=== PATIENT | female | born 1985 | race Caucasian/White ===

== ENCOUNTER 2018-08-27 11:22 | Emergency (ER) | payer OTHER, SELFPAY ==
[2018-08-27] MEDS ORDERED: ONDANSETRON 4 MG/2 ML VIAL ONE (12:04)
[2018-08-27] MEDS ORDERED: NA CHLORIDE 0.9% 1,000 ML ONE (12:04)
[2018-08-27] MEDS ORDERED: DICYCLOMINE HCL 10 MG CAP ONE (12:10)
[2018-08-27 12:30] LABS: Absolute Lymphocytes (CBC) 2.2 K/uL (0.7-4.9); Absolute Monocytes 0.6 K/uL (0.1-1.3); Absolute Neutrophil 5.3 K/uL (1.8-8.0); Basophils % 0.3 % (0-1.3); Eosinophils % 1.1 % (0-4.4); Hematocrit 39.9 % (36.0-45.0); Lymphocytes % 26.6 % (15.3-44.8); MCH 29.4 pg (27.0-35.0); MCV 85.6 fL (80-100); MPV 9.1 fL (7.6-11.3); Monocytes % 7.5 % (3.3-12.3); RBC Red Blood Cell Count 4.66 M/uL (3.86-4.86)
[2018-08-27 12:39] LABS: Urine Bacteria LOADED /HPF (<20); Urine Culture Reflex Order REFLEXED; Urine RBC <5 /HPF (NONE SEEN)
[2018-08-27 12:49] LABS: ALT/SGPT 32 U/L (12-78); AST/SGOT 20 U/L (15-37); Albumin 3.5 g/dL (3.4-5.0); Alkaline Phosphatase 53 U/L (45-117); BUN Blood Urea Nitrogen 5 mg/dL (7-18); Bicarbonate 23 mmol/L (21-32); Bilirubin Direct < 0.1 mg/dL (0-0.2); Bilirubin Total 0.3 mg/dL (0.2-1.0); Glucose Level 121 mg/dL (74-106); Lipase 147 U/L (73-393); Potassium 3.1 mmol/L (3.5-5.1); Protein, Total 7.4 g/dL (6.4-8.2); Sodium Level 139 mmol/L (136-145)
--- NOTE | 2018-08-27 13:22 | RAD REPORT ---
EXAM DESCRIPTION: US - Transvaginal OB - 08/27/2018 1:15 pm CLINICAL HISTORY: ABD PAIN COMPARISON: TRANSVAGINAL STUDY PROBE dated 10/25/2007 FINDINGS: A tiny single gestational sac is seen within the uterus. The shape of the sac is within no rmal limits for gestational age. No yolk sac or pole yet identified. The placenta is not yet developed due to early gestational age. The maternal adnexa and ovaries are within normal limits. Normal Doppler blood flow was demonstrated to both ovaries. IMPRESSION: The findings would be most compatible with a very early IUP, estimated at 5 weeks gestat ional age. Recommend follow-up pelvic ultrasound in 10-12 days and correlation with serial HCG levels .
[2018-08-27 14:52] LABS: Urine Blood NEGATIVE (NEG); Urine Glucose NEGATIVE (NEG); Urine Protein NEGATIVE (NEG); Urine pH 5.5 (5.0-7.0)
--- NOTE | 2018-08-27 15:40 | EDPHYS ---
Physician Documentation [facility] Name: Tanya Leija Age: 32 yrs Sex: Female : 1985 Arrival Date: 08/27/2018 Time: 11:26 Bed 20 Private MD: ED Physician Perico Kulkarni HPI: 08/27 11:43 This 32 yrs old Female presents to ER via Ambulatory with complaints of jmm Diarrhea, Abdominal Pain. 11:43 The patient presents to the emergency department with nausea, diarrhea. Onset: The jmm symptoms/episode began/occurred acutely, yesterday. Possible causes: unknown. Associated signs and symptoms: Pertinent positives: abdominal pain. 11:43 This is a 32 year old female with ahistory of HTN that presents to the ED with lower jmm abdominal pain and diarrhea beginning approx 1 day ago. Denies sick contacts, denies recent abx use, denies recent travel. . 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 - Social history:: Smoking status: Patient/guardian denies using tobacco. - Ebola Screening: : Patient negative for fever greater than or equal to 101.5 degrees Fahrenheit, and additional compatible Ebola Virus Disease symptoms Patient denies exposure to infectious person Patient denies travel to an Ebola-affected area in the 21 days before illness onset No symptoms or risks identified at this time. ROS: 11:43 Constitutional: Negative for fever, chills, and weight loss, Cardiovascular: Negative jmm for chest pain, palpitations, and edema, Respiratory: Negative for shortness of breath, cough, wheezing, and pleuritic chest pain. 11:43 Back: Negative for injury and pain, MS/Extremity: Negative for injury and deformity, Skin: Negative for injury, rash, and discoloration, Neuro: Negative for headache, weakness, numbness, tingling, and seizure. 11:43 Abdomen/GI: Positive for abdominal pain. 11:43 All other systems are negative. Exam: 11:43 Constitutional: This is a well developed, well nourished patient who is awake, alert, jmm and in no acute distress. Head/Face: atraumatic. Eyes: EOMI, no conjunctival erythema appreciated ENT: Moist Mucus Membranes Neck: Trachea midline, Supple Chest/axilla: Normal chest wall appearance and motion. Cardiovascular: Regular rate and rhythm. No edema appreciated Respiratory: Normal respirations, no respiratory distress appreciated 11:43 Abdomen/GI: Inspection: abdomen appears normal, Bowel sounds: normal, Palpation: soft, mild abdominal tenderness, in the right upper quadrant and right lower quadrant. 11:43 Back: ROM is normal. 11:43 Musculoskeletal/extremity: ROM: intact in all extremities. 11:43 Skin: Appearance: Color: normal in color. 11:43 Neuro: Orientation: is normal, Mentation: is normal, Memory: is normal. 11:43 Psych: Behavior/mood is pleasant, cooperative. Vital Signs: 11:28 BP 153 / 95; Pulse 105; Resp 19; Temp 98.6; Pulse Ox 98% on R/A; Weight 123.83 kg; aj Height 5 ft. 6 in. (167.64 cm); 12:30 BP 146 / 68; Pulse 97; Resp 18; Pulse Ox 100% on R/A; hj 13:46 BP 126 / 74; Pulse 82; Resp 18; Pulse Ox 100% on R/A; hj 14:49 BP 125 / 72; Pulse 80; Resp 18; Pulse Ox 100% on R/A; hj 15:18 BP 128 / 75; Pulse 85; Resp 18; Pulse Ox 100% on R/A; hj 11:28 Body Mass Index 44.06 (123.83 kg, 167.64 cm) aj MDM: 11:43 Patient medically screened. [facility] 15:38 Data reviewed: vital signs, nurses notes, lab test result(s), radiologic studies, [facility] ultrasound. Counseling: I had a detailed discussion with the patient and/or guardian regarding: the historical points, exam findings, and any diagnostic results supporting the discharge/admit diagnosis, radiology results, the need for outpatient follow up, to return to the emergency department if symptoms worsen or persist or if there are any questions or concerns that arise at home. 15:45 ED course: Patient states having decreased abdominal pain after administration of [facility] antiemetics, Bentyl, IVF. I discussed with radiology the need for MRI. Dr. Lawler stated MRI of the abdomen performed at this facility would be suboptimal and recommends transfer to an academic facility. The patient's CBC shows no leukocytosis and the patient is afebrile. The patient was advised of the need for transfer along with the risks of an undiagnosed appendicitis which could lead to of her and her fetus. The patient declined transfer and was educated on signs and symptoms of progressively worsening appendicitis. Patient understood. 08/27 11:44 Order name: Basic Metabolic Panel; Complete Time: 12:52 [facility] 08/27 11:44 Order name: CBC with Diff; Complete Time: 12:52 [facility] 08/27 11:44 Order name: Creatinine for Radiology; Complete Time: 12:52 [facility] 08/27 11:44 Order name: Hepatic Function; Complete Time: 12:52 [facility] 08/27 11:44 Order name: Lipase; Complete Time: 12:52 [facility] 08/27 12:00 Order name: Urine Microscopic Only; Complete Time: 12:52 [facility] 08/27 12:00 Order name: Urine Culture [facility] 08/27 12:08 Order name: Urine Dipstick--Ancillary (enter results); Complete Time: 14:56 08/27 12:08 Order name: Urine --Ancillary (enter results); Complete Time: 14:56 08/27 12:11 Order name: Quantitative Hcg; Complete Time: 13:19 [facility] 08/27 12:11 Order name: Abo/rh Typing; Complete Time: 13:19 [facility] 08/27 13:38 Order name: ABO/RH no charge; Complete Time: 13:48 EDMS 08/27 11:44 Order name: IV Saline Lock; Complete Time: 12:15 [facility] 08/27 11:44 Order name: Labs collected and sent; Complete Time: 12:15 [facility] 08/27 11:44 Order name: Urine Test (obtain specimen); Complete Time: 12:15 [facility] 08/27 13:16 Order name: Transvaginal OB; Complete Time: 13:25 EDMS Administered Medications: 11:44 Drug: NS 0.9% 1000 ml Route: IV; Rate: 1 bolus; Site: left antecubital; 14:00 Follow up: IV Status: Completed infusion 11:44 Drug: Zofran 4 mg Route: IVP; Site: left antecubital; hj 14:57 Follow up: Response: No adverse reaction hj 11:44 Drug: Bentyl 20 mg Route: PO; hj 14:58 Follow up: Response: No adverse reaction 11:44 CANCELLED (Duplicate Order): NS 0.9% 1000 ml IV at 1 bolus Per protocol; 1000 mL bolus [facility] Disposition: 17:49 Co-signature as Attending Physician, Perico Kulkarni MD. rn Disposition: 08/27/18 15:39 Discharged to Home. Impression: Urinary tract infection, site not specified, Other abdominal pain. - Condition is Stable. - Discharge Instructions: and Urinary Tract Infection. - Prescriptions for Macrobid 100 mg Oral Capsule - take 1 capsule by ORAL route every 12 hours for 7 days; 14 capsule. - Medication Reconciliation Form, Thank You Letter, Antibiotic Education, Prescription Opioid Use, Work release form form. - Follow up: Private Physician; When: 2 - 3 days; Reason: Recheck today's complaints, Continuance of care, Re-evaluation by your physician. - Notes: Please follow up with your primary care provider tomorrow for reevaluation of your abdomen. Please return to the Emergency Department if you develop -Fever -increased adominal pain -vomiting -vaginal bleeding -any other concerning symptoms Signatures: Dispatcher [employer] [facility] Tanya Jama RN Nikos Roberson PA PA jmm Nieto, Roman, MD MD rn Joaquin, Henry, RN RN hj Corrections: (The following items were deleted from the chart) 11:44 11:44 NS 0.9% 1000 ml IV at 1 bolus Per protocol; 1000 mL bolus ordered. [facility] 12:00 11:44 Abdomen Pelvis W Con+CT.RAD.BRZ ordered. [facility] 12:43 12:11 Pelvis Complete+US.RAD.BRZ ordered. [facility] 13:15 12:43 Transvaginal Study Probe ordered. [facility] 16:16 15:39 08/27/2018 15:39 Discharged to Home. Impression: Urinary tract infection, site hj not specified; Other abdominal pain. Condition is Stable. Forms are Medication Reconciliation Form, Thank You Letter, Antibiotic Education, Prescription Opioid Use. Follow up: Private Physician; When: 2 - 3 days; Reason: Recheck today's complaints, Continuance of care, Re-evaluation by your physician. [email or web address]
--- NOTE | 2018-08-27 15:40 | ER ---
Nurse's Notes [facility] Name: Tnaya Leija Age: 32 yrs Sex: Female : 1985 Arrival Date: 08/27/2018 Time: 11:26 Bed 20 Private MD: Diagnosis: Urinary tract infection, site not specified;Other abdominal pain Presentation: 08/27 11:26 Presenting complaint: Patient states: Nausea and diarrhea since yesterday with lower aj abdominal pain. Patient reports she is able to tolerate liquids. Did not take anti diarrhea medications. Transition of care: patient was not received from another setting of care. Onset of symptoms was August 26, 2018. Risk Assessment: Do you want to hurt yourself or someone else? Patient reports no desire to harm self or others. Initial Sepsis Screen: Does the patient meet any 2 criteria? No. Patient's initial sepsis screen is negative. Does the patient have a suspected source of infection? No. Patient's initial sepsis screen is negative. Care prior to arrival: None. 11:26 Method Of Arrival: Ambulatory aj 11:26 Acuity: SUJEY 3 aj Triage Assessment: 11:28 General: Appears in no apparent distress. comfortable, Behavior is calm, cooperative, aj appropriate for age. Pain: Complains of pain in right lower quadrant and left lower quadrant. Neuro: Level of Consciousness is awake, alert, obeys commands, Oriented to person, place, time, situation, Appropriate for age. Respiratory: Airway is patent Respiratory effort is even, unlabored, Respiratory pattern is regular, symmetrical. GI: Reports lower abdominal pain, diarrhea, nausea. Derm: Skin is intact, is healthy with good turgor, Skin is pink, warm \T\ dry. normal. RN MDS: 11:28 LMP 07/24/2018 aj Historical: - Allergies: 11:28 No Known Allergies; aj - Home Meds: 11:28 lisinopril 10 mg Oral tab 1 tab once daily [Active]; aj - PMHx: 11:28 Hypertension; aj - PSHx: 11:28 Cholecystectomy; ; aj - Immunization history:: Adult Immunizations up to date. - Social history:: Smoking status: Patient/guardian denies using tobacco. - Ebola Screening: : Patient negative for fever greater than or equal to 101.5 degrees Fahrenheit, and additional compatible Ebola Virus Disease symptoms Patient denies exposure to infectious person Patient denies travel to an Ebola-affected area in the 21 days before illness onset No symptoms or risks identified at this time. Screenin:38 Abuse screen: Denies threats or abuse. Denies injuries from another. Nutritional hj screening: No deficits noted. Tuberculosis screening: No symptoms or risk factors identified. Fall Risk None identified. Assessment: 11:41 General: Appears in no apparent distress. uncomfortable, Behavior is calm, cooperative, hj appropriate for age. Pain: Complains of pain in left lower quadrant and right lower quadrant. Neuro: Level of Consciousness is awake, alert, obeys commands, Oriented to person, place, time, situation, Appropriate for age. Cardiovascular: Capillary refill < 3 seconds Patient's skin is warm and dry. Respiratory: Airway is patent Respiratory effort is even, unlabored, Respiratory pattern is regular, symmetrical. GI: Reports lower abdominal pain, diarrhea. : No signs and/or symptoms were reported regarding the genitourinary system. EENT: No signs and/or symptoms were reported regarding the EENT system. Derm: No signs and/or symptoms reported regarding the dermatologic system. Musculoskeletal: No signs and/or symptoms reported regarding the musculoskeletal system. 12:30 Reassessment: Patient and/or family updated on plan of care and expected duration. Pain hj level reassessed. Patient is alert, oriented x 3, equal unlabored respirations, skin warm/dry/pink. awaiting CT/US;. 13:51 Reassessment: Patient and/or family updated on plan of care and expected duration. Pain hj level reassessed. Patient is alert, oriented x 3, equal unlabored respirations, skin warm/dry/pink. awaiting results and POC;. 15:18 Reassessment: provider in room for POC;. hj Vital Signs: 11:28 BP 153 / 95; Pulse 105; Resp 19; Temp 98.6; Pulse Ox 98% on R/A; Weight 123.83 kg; aj Height 5 ft. 6 in. (167.64 cm); 12:30 BP 146 / 68; Pulse 97; Resp 18; Pulse Ox 100% on R/A; hj 13:46 BP 126 / 74; Pulse 82; Resp 18; Pulse Ox 100% on R/A; hj 14:49 BP 125 / 72; Pulse 80; Resp 18; Pulse Ox 100% on R/A; hj 15:18 BP 128 / 75; Pulse 85; Resp 18; Pulse Ox 100% on R/A; hj 11:28 Body Mass Index 44.06 (123.83 kg, 167.64 cm) ED Course: 11: Patient arrived in ED. aj 11:27 Triage completed. aj 11:28 Arm band placed on right wrist. Patient placed in an exam room. aj 11:30 Nikos Sanchez PA is PHCP. [facility] 11:30 Perico Kulkarni MD is Attending Physician. jm 11:37 Vasile Olmos, ROLANDA is Primary Nurse. hj 11:38 Patient has correct armband on for positive identification. Placed in gown. Bed in low hj position. Call light in reach. Side rails up X 1. Adult w/ patient. 11:44 Initial lab(s) drawn, by me, sent to lab. Inserted saline lock: 20 gauge in left hj antecubital area, using aseptic technique. Blood collected. 11:46 Radiology exam delayed due to lab results not completed at this time. (BUN/Creatinine). [id number] 13:13 Ultrasound completed. Patient tolerated well. Patient moved back from ultrasound. aa4 13:16 Transvaginal OB In Process Unspecified. EDMS 16:14 No provider procedures requiring assistance completed. IV discontinued, intact, hj bleeding controlled, No redness/swelling at site. Pressure dressing applied. Administered Medications: 11:44 Drug: NS 0.9% 1000 ml Route: IV; Rate: 1 bolus; Site: left antecubital; hj 14:00 Follow up: IV Status: Completed infusion hj :44 Drug: Zofran 4 mg Route: IVP; Site: left antecubital; hj 14:57 Follow up: Response: No adverse reaction hj 11:44 Drug: Bentyl 20 mg Route: PO; hj 14:58 Follow up: Response: No adverse reaction hj 11:44 CANCELLED (Duplicate Order): NS 0.9% 1000 ml IV at 1 bolus Per protocol; 1000 mL bolus [facility] Outcome: 15:39 Discharge ordered by . [facility] 16:15 Discharged to home ambulatory. hj 16:15 Condition: stable 16:15 Discharge instructions given to patient, Instructed on discharge instructions, follow up and referral plans. medication usage, Demonstrated understanding of instructions, follow-up care, medications, Prescriptions given X 1. 16:16 Patient left the ED. hj Signatures: Dispatcher [employer] EDTanya Yancey, RN RN Nikos Turpin PA PA jmm Frazier, Amanda aa4 Vasile Olmos, RN RN Raeann Garcia [email or web address] Corrections: (The following items were deleted from the chart) 13:15 13:08 In radiology for Transvaginal Study Probe. [facility] ED
== END 2018-08-27 16:16 | disposition home or self-care (01) ==
LOC: ER 11:22
DX: N39.0 Urinary tract infection, site not specified (principal); I10 Essential (primary) hypertension; Z33.1 Pregnant state, incidental
CPT/HCPCS: 36415; 76817; 80048; 80076; 81003; 81015; 81025; 83690; 84702; 85025; 86900; 86901; 87086; 87088; 96361; 96374; 99284; J2405; J7030

== ENCOUNTER 2020-03-27 11:43 | Emergency (ER) | payer OTHER ==
[2020-03-27 12:50] LABS: Absolute Lymphocytes (CBC) 3.3 K/uL (0.7-4.9); Basophils % 0.7 % (0-1.3); Hematocrit 40.1 % (36.0-45.0); Lymphocytes % 31.7 % (15.3-44.8); RBC Red Blood Cell Count 4.83 M/uL (3.86-4.86)
[2020-03-27 13:16] LABS: ALT/SGPT 28 U/L (12-78); AST/SGOT 16 U/L (15-37); Albumin 3.8 g/dL (3.4-5.0); Alkaline Phosphatase 62 U/L (45-117); BUN Blood Urea Nitrogen 10 mg/dL (7-18); Bicarbonate 25 mmol/L (21-32); Bilirubin Direct < 0.1 mg/dL (0-0.2); Bilirubin Total 0.3 mg/dL (0.2-1.0); Glucose Level 101 mg/dL (74-106); Lipase 96 U/L (73-393); Potassium 3.7 mmol/L (3.5-5.1); Sodium Level 140 mmol/L (136-145)
--- NOTE | 2020-03-27 13:32 | ER ---
Nurse's Notes [facility] Name: Tanya Leija Age: 34 yrs Sex: Female : 1985 Arrival Date: 03/27/2020 Time: 11:46 Bed 18 Private MD: Diagnosis: Encounter for screening for lower gastrointestinal disorder-Rectal bleeding Presentation: 03/27 12:05 Chief complaint: Patient states: since Friday has had blood in stool , states she sees iw blood in toilet when she has BM, has abd pain after BM, denies diarrhea, no hx of hemorrhoid. Coronavirus screen: Proceed with normal triage. Patient denies a cough. Patient denies shortness of breath or difficulty breathing. Patient denies measured and/or subjective temperature greater than 100.4F prior to today's visit. Patient denies travel on a cruise ship or to a country the [facility] currently lists as an affected area. Patient denies contact with known and/or suspected case of COVID-19. Ebola Screen: Patient negative for fever greater than or equal to 101.5 degrees Fahrenheit, and additional compatible Ebola Virus Disease symptoms Patient denies exposure to infectious person. Patient denies travel to an Ebola-affected area in the 21 days before illness onset. No symptoms or risks identified at this time. Initial Sepsis Screen: Does the patient meet any 2 criteria? No. Patient's initial sepsis screen is negative. Does the patient have a suspected source of infection? No. Patient's initial sepsis screen is negative. Risk Assessment: Do you want to hurt yourself or someone else? Patient reports no desire to harm self or others. Onset of symptoms was March 24, 2020. 12:05 Method Of Arrival: Ambulatory iw 12:05 Acuity: SUJEY 3 iw OFFICE ASSISTANT: 12:09 LMP 03/09/2020 iw Historical: - Allergies: 12:09 No Known Allergies; iw - Home Meds: 12:09 control [Active]; iw - PMHx: 12:09 Hypertension; iw - PSHx: 12:09 Cholecystectomy; ; iw - Immunization history:: Adult Immunizations not up to date. - Social history:: Smoking status: Patient denies any tobacco usage or history of. - Family history:: not pertinent. - Hospitalizations: : No recent hospitalization is reported. Screenin:45 Abuse screen: Denies threats or abuse. Denies injuries from another. Nutritional ph screening: No deficits noted. Tuberculosis screening: No symptoms or risk factors identified. Fall Risk None identified. Assessment: 12:32 General: Appears in no apparent distress. comfortable, obese, well groomed, Behavior is ph calm, cooperative, appropriate for age, Denies fever, feeling ill. Pain: Denies pain. Neuro: Level of Consciousness is awake, alert, obeys commands, Oriented to person, place, time, situation. Cardiovascular: Denies fatigue, lightheadedness, shortness of breath, Capillary refill < 3 seconds in bilateral fingers Patient's skin is warm and dry. Respiratory: Airway is patent Respiratory effort is even, unlabored, Respiratory pattern is regular, symmetrical. GI: Abdomen is round non-distended, Bowel sounds present X 4 quads. Abd is soft and non tender X 4 quads. Reports rectal bleeding, Patient currently denies abdominal pain, bloody stool, diarrhea, nausea, vomiting. Derm: Skin is intact, is healthy with good turgor, Skin is pink, warm \T\ dry. Musculoskeletal: Circulation, motion, and sensation intact. Range of motion: intact in all extremities. Vital Signs: 12:05 BP 149 / 90; Pulse 98; Resp 16 S; Temp 98.3; Pulse Ox 98% on R/A; Weight 128.82 kg; iw Height 5 ft. 7 in. (170.18 cm); Pain 0/10; 13:00 BP 124 / 81; Pulse 84; Resp 16; Pulse Ox 99% on R/A; ph 13:44 BP 124 / 75; Pulse 81; Resp 18; Temp 97.9; Pulse Ox 99% on R/A; ph 12:05 Body Mass Index 44.48 (128.82 kg, 170.18 cm) iw ED Course: 11:46 Patient arrived in ED. fj1 12:08 Triage completed. iw 12:09 Arm band placed on. iw 12:16 Perico Kulkarni MD is Attending Physician. rn 12:34 Romy Rose, ROLANDA is Primary Nurse. ph 12:40 Initial lab(s) drawn, by me, sent to lab. Inserted saline lock: 20 gauge in right dh3 antecubital area, using aseptic technique. Blood collected. 13:30 Jesús De Luna MD is Referral Physician. rn 13:45 Patient has correct armband on for positive identification. Bed in low position. Call ph light in reach. Side rails up X 1. Pulse ox on. NIBP on. Door closed. Noise minimized. Warm blanket given. Head of bed elevated. 13:46 No provider procedures requiring assistance completed. IV discontinued, intact, ph bleeding controlled, No redness/swelling at site. Pressure dressing applied. Administered Medications: No medications were administered Outcome: 13:31 Discharge ordered by . rn 13:46 Discharged to home ambulatory, with significant other. ph 13:46 Condition: good 13:46 Discharge instructions given to patient, Instructed on discharge instructions, follow up and referral plans. Demonstrated understanding of instructions, follow-up care. 13:46 Patient left the ED. ph Signatures: Marylou Taylor, RN Perico Miramontes MD MD rn Hall, Patricia, RN RN ph Herrera, Deanna 3 Chema Mckeon fj1
--- NOTE | 2020-03-27 13:32 | EDPHYS ---
Physician Documentation [facility] Name: Tanya Leija Age: 34 yrs Sex: Female : 1985 Arrival Date: 03/27/2020 Time: 11:46 Bed 18 Private MD: ED Physician Perico Kulkarni HPI: 03/27 12:43 This 34 yrs old Female presents to ER via Ambulatory with complaints of rn Bloody Stools. 12:43 The patient presents to the emergency department with rectal bleeding, a small amount, rn bright red blood with bowel movement, with multiple such episodes. Onset: The symptoms/episode began/occurred 3 day(s) ago. Abdominal pain: none is appreciated. Modifying factors: The symptoms are alleviated by nothing, the symptoms are aggravated by bowel movement. Severity of symptoms: At their worst the symptoms were mild in the emergency department the symptoms are unchanged. The patient has not experienced similar symptoms in the past. The patient has not recently seen a physician. Reports a few episodes of small amount of bright red blood per rectum, only with bowel movements, not mixed with stool, no abd pain/vomiting/diarrhea. Has never happened before. Painless. No blood thinners. No trauma. . 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 - Social history:: Smoking status: Patient denies any tobacco usage or history of. - Family history:: not pertinent. - Hospitalizations: : No recent hospitalization is reported. ROS: 12:43 Constitutional: Negative for fever, chills, and weight loss, Eyes: Negative for injury, rn pain, redness, and discharge, Neck: Negative for injury, pain, and swelling, Cardiovascular: Negative for chest pain, palpitations, and edema, Respiratory: Negative for shortness of breath, cough, wheezing, and pleuritic chest pain, Abdomen/GI: Negative for abdominal pain, nausea, vomiting, diarrhea, and constipation, MS/Extremity: Negative for injury and deformity, Skin: Negative for injury, rash, and discoloration, Neuro: Negative for headache, weakness, numbness, tingling, and seizure. Exam: 12:43 Constitutional: This is a well developed, well nourished patient who is awake, alert, rn and in no acute distress. Head/Face: Normocephalic, atraumatic. Cardiovascular: Regular rate and rhythm. No pulse deficits. Respiratory: No increased work of breathing, no retractions or nasal flaring. Abdomen/GI: soft, non-tender, no external hemorrhoids, no fissure. Skin: Warm, dry with normal turgor. Normal color with no rashes, no lesions, and no evidence of cellulitis. Vital Signs: 12:05 BP 149 / 90; Pulse 98; Resp 16 S; Temp 98.3; Pulse Ox 98% on R/A; Weight 128.82 kg; iw Height 5 ft. 7 in. (170.18 cm); Pain 0/10; 13:00 BP 124 / 81; Pulse 84; Resp 16; Pulse Ox 99% on R/A; ph 13:44 BP 124 / 75; Pulse 81; Resp 18; Temp 97.9; Pulse Ox 99% on R/A; ph 12:05 Body Mass Index 44.48 (128.82 kg, 170.18 cm) iw MDM: 12:16 Patient medically screened. rn 13:29 Differential diagnosis: hemorrhoids. Data reviewed: vital signs, nurses notes, lab test rn result(s), and as a result, I will discharge patient. Counseling: I had a detailed discussion with the patient and/or guardian regarding: the historical points, exam findings, and any diagnostic results supporting the discharge/admit diagnosis, lab results, the need for outpatient follow up, to return to the emergency department if symptoms worsen or persist or if there are any questions or concerns that arise at home. Special discussion: I discussed with the patient/guardian in detail that at this point there is no indication for admission to the hospital. It is understood, however, that if the symptoms persist or worsen the patient needs to return immediately for re-evaluation. Based on the history and exam findings, there is no indication for further emergent testing or inpatient evaluation. I discussed with the patient/guardian the need to see the animal pathologist for further evaluation of the symptoms. 03/27 12:32 Order name: Basic Metabolic Panel; Complete Time: 13:28 rn 03/27 12:32 Order name: CBC with Diff; Complete Time: 13:28 rn 03/27 12:32 Order name: IV Start; Complete Time: 12:43 rn 03/27 12:32 Order name: Hepatic Function; Complete Time: 13:28 rn 03/27 12:32 Order name: Lipase; Complete Time: 13:28 rn 03/27 12:32 Order name: Labs collected and sent; Complete Time: 12:43 rn Administered Medications: No medications were administered Disposition: 03/27/20 13:31 Discharged to Home. Impression: Encounter for screening for lower gastrointestinal disorder - Rectal bleeding. - Condition is Stable. - Discharge Instructions: Hemorrhoids, Rectal Bleeding. - Medication Reconciliation Form, Thank You Letter, Antibiotic Education, Prescription Opioid Use form. - Follow up: Jesús De Luna MD; When: As needed; Reason: Recheck today's complaints, Re-evaluation by your physician. - Problem is new. - Symptoms have improved. Signatures: Dispatcher [employer] EDMarylou Barrett RN RN iw Nieto, Roman, MD MD rn Hall, Patricia, RN RN ph Corrections: (The following items were deleted from the chart) 13:46 13:31 03/27/2020 13:31 Discharged to Home. Impression: Encounter for screening for ph lower gastrointestinal disorder - Rectal bleeding. Condition is Stable. Forms are Medication Reconciliation Form, Thank You Letter, Antibiotic Education, Prescription Opioid Use. Follow up: Jesús De Luna; When: As needed; Reason: Recheck today's complaints, Re-evaluation by your physician. Problem is new. Symptoms have improved. rn
[2020-03-27 13:56] VITALS: O2SAT 99
[2020-03-27 13:58] VITALS: BP 124/75; TEMP 97.9
--- OUTSIDE RECORDS SUMMARY | 2020-03-27 16:44 | XMS REPORT | Continuity of Care Document ---
:1985 Author Organization [facility] t Address [address] [place] [address] Care Team Providers Name Role Phone Pedro Pickens Attending Clinician Problems This patient has no known problems. Allergies, Adverse Reactions, Alerts This patient has no known allergies or adverse reactions. Medications This patient has no known medications. Procedures This patient has no known procedures. Encounters Start End Encounter Admission Attending Care Care Encounter Source Date/Time Date/Time Type Type Clinicians Facility Department ID 2020-02-07 2020-02-07 [id number] 12:50:41 13:05:41 ne Visit Lizzy Vasquez [employer] [id number] [facility] [id number] MATERNAL [id number] & CHILD 107 [facility] 2019-11-08 2019-11-08 Office [facility] [id number] 10:26:06 11:30:34 Visit Lizzy Vasquez [employer] [id number] [facility] [id number] MATERNAL [id number] & CHILD 107 [facility] Results This patient has no known results.
--- OUTSIDE RECORDS SUMMARY | 2020-03-27 16:44 | XMS REPORT | Summary of Care ---
:1985 Author Organization [facility] Address [address] [place] [address] Care Team Providers Name Role Phone Natalio Rios Insurance [employer] Bjorn Kincaid MD Primary Care Provider Reason for Visit Reason Comments CONTROL telehealth Encounter Details Date Type Department Care Team Description 02/07/2020 Telemedicine Visit [facility] [place], Enc ounter for other contraceptive management (Primary Dx); Manny Vasquez, Encounter for initial prescr iption of contraceptive pills [address] [facility] [place] [place] [address] [id number] [address] [phone] [place] [address] Allergies No Known Allergiesdocumented as of this encounter (statuses as of 02/07/2020) Medications Medication Sig Dispensed Refills Start Date End Date Status norethindrone 0.35 Take 1 1 Package 8 02/07/2020 Active mg tablet by tabletIndications: mouth daily. Encounter for initial prescription of contraceptive pills norethindrone 0.35 Take 1 1 Package 3 11/02/2019 Discontinued mg tablet by 0 (Reorder) tabletIndications: mouth daily. Encounter for initial prescription of contraceptive pills documented as of this encounter (statuses as of 02/07/2020) Active Problems Problem Noted Date Contraception management 02/07/2020 Irregular menstrual cycle 11/08/2019 Obesity, Class III, BMI 40-49.9 (morbid obesity) 10/12 Family history of cleft palate 09/09/2018 Influenza vaccination declined 09/09/2018 Hirsutism 07/27/2015 Essential hypertension documented as of this encounter (statuses as of 02/07/2020) Resolved Problems Problem Noted Date Resolved Date Chronic hypertension during 04/21/2019 Liveborn infant, of kat , born in hospital by 04/21/2019 11/02/2019 delivery 38 weeks gestation of 03/22/2019 11/02/19 20 Excessive growth affecting , antepartum, 01/1111/02/2019 single or unspecified fetus Supervision of high risk in third trimester 201811/02/2019 Obesity affecting in third trimester 11/19/2018 04/21/2019 Supervision of high risk in second trimester 10/2904/21/2019 Pre-existing essential hypertension during , 201704/21/2019 antepartum Urinary tract infection in mother during , 09/25/20 18 04/21/2019 antepartum Exposure to teratogen during , 09/17/2018 11/02/2019 antepartum-lisinopril in early Nausea and vomiting during prior to 22 weeks 09/1704/21/2019 gestation Exposure to teratogen during , antepartum 8 09/17/2018 Previous section complicating 09/09/2018 11/02/2019 Rubella non-immune status, antepartum 09/09/2018 Overview: MMR pp Chronic hypertension affecting 09/08/2018 11/02/2019 Obesity affecting in first trimester 09/08/2018 11/19/2018 Well woman exam with routine gynecological exam 03/03/2018 09/08/2018 Encounter for contraceptive management, unspecified type 09/08/2018 Encounter for IUD removal 03/03/2018 09/08/2018 BMI 40.0-44.9, adult 03/03/2018 09/08/2018 Morbid obesity with BMI of 40.0-44.9, adult 10/03/2017 09/08/2018 Oligomenorrhea 07/27/2015 09/08/2018 Encounter for insertion of mirena IUD 07/27/2015 documented as of this encounter (statuses as of 02/07/2020) Immunizations Name Administration Dates Next Due Influenza Virus Vaccine 08/13/2019 Influenza Virus Vaccine Quad .5 mL IM 6+ MO 10/12/2018 MMR 04/23/2019, 04/22/2019 Tdap 02/03/2019 documented as of this encounter Social History Tobacco Use Types Packs/Day Years Used Date Never Smoker Smokeless Tobacco: Never Used Alcohol Use Drinks/Week oz/Week Comments Not Currently 0 Standard drinks or equivalent 0.0 Sex Assigned at Date Recorded Not on file Job Start Date Occupation Industry Not on file Not on file Not on file Travel History Travel Start Travel End No recent travel history available. documented as of this encounter Last Filed Vital Signs Not on filedocumented in this encounter Progress Notes Lizzy Ivey, CNP - 02/07/2020 3:30 PM CDT TELEHEALTH NOTE Verbal consent obtained from Patient: Tanya Leija due to the COVID-19 pandemic for telehealth services provided below. Communication with patient was conducted via Telephone due to patient unable to obtain video call option. Location of Patient: Home Location of Provider: home Date of Service: 02/07/2020 Chief Complaint: control HPI: Tanya Leija is a 34 year old female with Past Medical History: Diagnosis Date Essential hypertension on medication x1 yr; managed by [facility] Essential hypertension no PCP at this time, no meds at this time. Hypertriglyceridemia Irregular menstrual cycle 11/08/2019 Menstrual disorder H/O amenorrhea as a teen Morbid obesity with BMI of 40.0-44.9, adult 10/03/2017 COVID-19 SCREEN: ? Recent history of travel to a high-risk area: No ? Recent sick contacts before or during admission: No ? Contact with a proven COVID-19 case: No ? Symptoms of COVID-19, which include fever, dry cough, fatigue, difficulty breathing: No This patient is considered low risk for COVID-19 infection. The patient visit was conducted via telehealth on today. She reports she is doing well with no issues or concerns today. She reports she is currently on control pills and reports she is pleased with her method. She does report that her last menses was the first week in december and she reports she has not had a menses for the month. She reports she takes her ocp daily and she has not missed a day since starting the ocp in 10/2019. MEDICATIONS: Current Outpatient Medications Medication Sig Dispense Refill norethindrone 0.35 mg tablet Take 1 tablet by mouth daily. 1 Package 8 No current facility-administered medications for this visit. ROS Constitutional: negative Eyes: negative Ears: negative Nose/Sinuses: negative Mouth/Throat: negative Cardiovascular: negative Respiratory: negative Gastrointestinal: negative Genitourinary: negative Musculoskeletal: negative Integumentary: negative Neuro: negative Psych: negative Endocrine: negative Hem/Lymph: negative Allergy/Immunology: negative TELEHEALTH EXAM Constitutional: alert and in no distress Respiratory: breathing comfortably Neuro: answers questions appropriately Psych: normal affect ASSESSMENT/ PLAN Return to clinic in 9 months for WWE or sooner as needed Tanya Leija is a 34 year old female with PMH as above presenting with: 2. Encounter for initial prescription of contraceptive pills Comment; desires Plan: as ordered - norethindrone 0.35 mg tablet; Take 1 tablet by mouth daily. Dispense: 1 Package; Refill: 8 After visit summary (AVS ) documentation will be available through [employer] for this encounter. A total of 13 minutes was spent on the Telephone due to patient unable to obtain video call option. ANTONY Neville documented in this encounter Plan of Treatment Health Maintenance Due Date Last Done Comments PAP SMEAR 09/08/2021 09/08/2018, 07/19/2015, 09/10/2010 DTaP,Tdap,and Td Vaccines (2 02/03/2029 02/03/2019 - Td) INFLUENZA VACCINE Completed 08/13/2019, 10/12/2018 PNEUMOCOCCAL 0-64 YEARS Aged Out No longe r eligible based COMBINED SERIES on patient's age to complete this to [facility] documented as of this encounter Results Not on filedocumented in this encounter Visit Diagnoses Diagnosis Encounter for other contraceptive manage ment - Primary Encounter for initial prescription of co ntraceptive pills General counseling for prescription of o ral contraceptives documented in this encounter Insurance Payer Benefit Plan / Subscriber ID Effective Phone Address T [facility] xxxxxxxxx 2020-[address] Medic aid HEALTH CHOICE - [place] [id number] 1 MANAGED MEDICAID [place], [place] [phone] documented as of this encounter Advance Directives Name Relationship Healthcare Agent Communication Relationship Olga Leija Mother Primary healthcare agent
== END 2020-03-27 13:46 | disposition home or self-care (01) ==
LOC: ER 11:43
DX: Z13.811 Encounter for screening for lower gastrointestinal disorder (principal); I10 Essential (primary) hypertension
CPT/HCPCS: 36415; 80048; 80076; 83690; 85025; 99284

== ENCOUNTER 2023-08-27 19:42 | Emergency (ER) | payer OTHER, SELFPAY ==
--- OUTSIDE RECORDS SUMMARY | 2023-08-27 19:46 | XMS REPORT | Continuity of Care Document ---
:1985 Author Organization [facility] t Address [address] [place] [place] [address] Care Team Providers Name Role Phone EVITADONNIE RICKIE Primary Care Physician Unavailable MALORIE CRUZ Attending Clinician Unavailable SATINDER BRAGG Attending Clinician Unavailable DIANNE AMADOR Attending Clinician Unavailable ELISE FONTENOT Attending Clinician Unavailable LAMIN MEADOWS Attending Clinician Unavailable Ranulfo Attending Clinician Unavailable Christine Attending Clinician Unavailable Doctor Unassigned, [place] Attending Clinician Unavailable Dianne Amador PA-C Attending Clinician Donnie Jama MD Attending Clinician JONATHAN HUGGINS Attending Clinician Unavailable Lacey Garza PT Attending Clinician Unavailable Jonathan Huggins MD Attending Clinician DONNIE JAMA Attending Clinician Unavailable Ajith RUBY Carmine Agarwalan Attending Clinician 2, [facility] Attending Clinician Unavailable Pob, [facility] Main Attending Clinician Unavailable Elio Capellan Attending Clinician CARSON FULTON Attending Clinician Unavailable Nitesh Pickens Attending Clinician [phone] NITESH DALE Attending Clinician Unavailable Christin Kidd Attending Clinician Ranulfo Admitting Clinician Unavailable Christine Admitting Clinician Unavailable Payers Payer Name Policy Type Policy Number Effective Date Expiration Date Halie paul [facility] [id number] 2020 [facility] MEDICAID 00:00:00 [facility] [id number] 2020 CHOICE (MEDICAID 00:00:00 REPLACEMENT - HMO) MEDICAID OF [place] [id number] 2019 00:00:00 Problems Condition Condition Condition Status Onset Resolution Last Treating Co mments Source Name Details Category Date Date Treatment Clinician Date Goiter Goiter Problem Active [place] Anxiety Anxiety Problem Active [place] 4[facility]20 [facility] Dysphagia Dysphagia Problem Active [facility] [place] 2-13 da 00:[facility] Vitamin D Vitamin D Problem Active [facility] [place] deficiency Deficiency 5-10 da 00:00: [facility] 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 Hyperchole 5-10 da sterolemia sterolemia 00:00: [facility] and and 00 al hypertrigl Hypertrigl He alth yceridemia yceridemia Ou treac h Program Paresthesi Paresthesi Problem Active 2022-0 M [place] [facility] of lower a of Lower 4-27 da extremity Extremity 00:00: Epis 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 copyist 00 al [facility] Body mass Body Mass Problem Active [place] index 30+ Index 30+ 4-27 da - obesity - Obesity 00:00: [facility] picture copyist 00 al [facility] Essential Essential Problem Active [place] hypertensi Hypertensi 4-27 da on on 00:00: [facility] Encounter Encounter Disease Active Uni vers for for 1-13 [place] Medical suspected suspected Bran ch ectopic ectopic Previous Previous Disease Active 2019-10 Unive rs 2-17 ity of section section 00:00: [place] [address] Medical Branch Obesity, Obesity, Disease Active 2017-10 Unive rs Class III, Class III, 2-31 it y of BMI BMI 00:00: [place] 40-49.9 40-49.9 00 Medical (morbid (morbid Branch obesity) obesity) Family Family Disease Active 2017-10 Univers history of history of 11-09 it y of cleft cleft 00:00: [place] palate palate 00 Medical Branch Influenza Influenza Disease Active 2017-10 Uni vers vaccinatio vaccinatio 1- [place] Hirsutism Hirsutism Disease Active 2014-10 Uni vers 0-15 ity of 00:00: [address] Branch Allergies, Adverse Reactions, Alerts Allergy Allergy Status Severity Reaction(s) Onset Inactive Treating Comm ents Source Name Type Date Date Clinician NO KNOWN Drug Active Univers ALLERGIE Class ity of S [facility] Social History Social Habit Start Date Stop Date Quantity Comments Source Exposure to Not sure [facility] SARS-CoV-2 [facility] (event) Branch Alcohol intake 2021-08-27 2021-08-27 0 /d University of 00:00:00 00:00:00 [facility] Tobacco use and 2015-07-19 2015-07-19 Smokeless tobacco Un iversity of exposure 00:00:00 00:00:00 non-user [facility] Sex Ass[birth year] Universit y of 00:00:00 00:00:00 [facility] Smoking Status Start Date Stop Date Source Never Smoker [facility] Medications Ordered Filled Start Stop Current Ordering Indication Dosage Frequency Signature Comments Components Source Medication Medication Date Date Medication? Clinician (SIG) Name Name bryangestimat 2020-10 Yes [id number] 1{tbl} Take 1 Univers e-ethinyl 1-15 tablet by ity o f estradioL 00:00: mouth [place] 0.25-35 00 daily. Medical mg-mcg per Branch tablet norgestimat 2020-10 Yes [id number] 1{tbl} Take 1 Univers e-ethinyl 1-15 tablet by ity o f estradioL 00:00: mouth [place] 0.25-35 00 daily. Medical mg-mcg per Branch tablet norgestimat 2020- No [id number] 1{tbl} Take 1 Univers e-ethinyl 2-02 11-15 tablet by ity of estradioL 00:00: 00:00 mouth [place] 0.25-35 00 :00 daily. Medical mg-mcg per Branch tablet amlodipine amlodipine No 1 Q1D amlodipine [place] 10 mg 10 mg 10 mg da tablet Take tablet Take tablet [facility] 1 tablet 1 tablet Take 1 al every day every day tablet Hea lth by oral by oral every day Outr eac route. for route. for by oral h high blood high blood route. for Program pressure pressure high blood pressure fenofibrate fenofibrate No fenofibrat [place] 54 mg 54 mg e 54 mg da tablet TAKE tablet TAKE tablet [facility] 1 TABLET BY 1 TABLET BY TAKE 1 al MOUTH EVERY MOUTH EVERY TABLET BY Health DAY DAY MOUTH Outreac EVERY DAY h Program hydroxyzine hydroxyzine No hydroxyzin [place] HCl 25 mg HCl 25 mg e HCl 25 d a tablet 1-2 tablet 1-2 mg tablet [facility] tablets PO tablets PO 1-2 al as needed as needed tablets PO Health Q6-8 hours Q6-8 hours as needed Outreac for anxiety for anxiety Q6-8 hours h may cause may cause for Progr am drowsiness. drowsiness. anxiety may cause drowsiness . amlodipine amlodipine No amlodipine [place] 10 mg 10 mg 10 mg da tablet TAKE tablet TAKE tablet [facility] 1 TABLET 1 TABLET TAKE 1 al EVERY DAY EVERY DAY TABLET Hea lth BY ORAL BY ORAL EVERY DAY Outr eac ROUTE. ROUTE. BY ORAL h ROUTE. Program cholecalcif cholecalcif No 1capsul Q1W cholecalci [place] simba simba e(s) ferol da (vitamin (vitamin (vitamin Epi scop D3) 1,250 D3) 1,250 D3) 1,250 al mcg (50,000 mcg (50,000 mcg H ealth unit) unit) (50,000 Outreac capsule capsule unit) h Take 1 Take 1 capsule Program capsule capsule Take 1 every week every week capsule by oral by oral every week route. route. by oral route. hydroxyzine hydroxyzine No hydroxyzin [place] HCl 25 mg HCl 25 mg e HCl 25 d a tablet 1-2 tablet 1-2 mg tablet [facility] tablets PO tablets PO 1-2 al as needed as needed tablets PO Health Q6-8 hours Q6-8 hours as needed Outreac for anxiety for anxiety Q6-8 hours h may cause may cause for Progr am drowsiness. drowsiness. anxiety may cause drowsiness . amlodipine amlodipine No amlodipine [place] 10 mg 10 mg 10 mg da tablet TAKE tablet TAKE tablet [facility] 1 TABLET 1 TABLET TAKE 1 al EVERY DAY EVERY DAY TABLET Hea lth BY ORAL BY ORAL EVERY DAY Outr eac ROUTE. ROUTE. BY ORAL h ROUTE. Program cholecalcif cholecalcif No 1capsul Q1W cholecalci [place] simba simba e(s) ferol da (vitamin (vitamin (vitamin Epi scop D3) 1,250 D3) 1,250 D3) 1,250 al mcg (50,000 mcg (50,000 mcg H ealth unit) unit) (50,000 Outreac capsule capsule unit) h Take 1 Take 1 capsule Program capsule capsule Take 1 every week every week capsule by oral by oral every week route. route. by oral route. hydroxyzine hydroxyzine No hydroxyzin [place] HCl 25 mg HCl 25 mg e HCl 25 d a tablet 1-2 tablet 1-2 mg tablet [facility] tablets PO tablets PO 1-2 al as needed as needed tablets PO Health Q6-8 hours Q6-8 hours as needed Outreac for anxiety for anxiety Q6-8 hours h may cause may cause for Progr am drowsiness. drowsiness. anxiety may cause drowsiness . omeprazole omeprazole No 1capsul Q1D omeprazole [place] 20 mg 20 mg e(s) 20 mg da capsule,del capsule,del capsule,de [facility] ayed ayed layed al release release release Health Take 1 Take 1 Take 1 Outreac capsule capsule capsule h every day every day every day Program by oral by oral by oral route for route for route for 30 days. 30 days. 30 days. amlodipine amlodipine No 1 Q1D amlodipine [place] 10 mg 10 mg 10 mg da tablet Take tablet Take tablet [facility] 1 tablet 1 tablet Take 1 al every day every day tablet Hea lth by oral by oral every day Outr eac route. for route. for by oral h high blood high blood route. for Program pressure pressure high blood pressure amlodipine amlodipine No amlodipine [place] 5 mg tablet 5 mg tablet 5 mg d a TAKE 1 TAKE 1 tablet [facility] TABLET TABLET TAKE 1 al EVERY DAY EVERY DAY TABLET Hea lth BY ORAL BY ORAL EVERY DAY Outr eac ROUTE. ROUTE. BY ORAL h ROUTE. Program cholecalcif cholecalcif No 1capsul Q1W cholecalci [place] simba simba e(s) ferol da (vitamin (vitamin (vitamin Epi scop D3) 1,250 D3) 1,250 D3) 1,250 al mcg (50,000 mcg (50,000 mcg H ealth unit) unit) (50,000 Outreac capsule capsule unit) h Take 1 Take 1 capsule Program capsule capsule Take 1 every week every week capsule by oral by oral every week route. route. by oral route. fenofibrate fenofibrate No 1 Q1D fenofibrat [place] 54 mg 54 mg e 54 mg da tablet Take tablet Take tablet [facility] 1 tablet 1 tablet Take 1 al every day every day tablet Hea lth by oral by oral every day Outr eac route. for route. for by oral h elevated elevated route. for P rogram triglycerid triglycerid elevated es. es. triglyceri gianna. amlodipine amlodipine No amlodipine [place] 10 mg 10 mg 10 mg da tablet TAKE tablet TAKE tablet [facility] 1 TABLET BY 1 TABLET BY TAKE 1 al MOUTH EVERY MOUTH EVERY TABLET BY Health DAY DAY MOUTH Outreac EVERY DAY h Program cholecalcif cholecalcif No cholecalci [place] simba simba ferol da (vitamin (vitamin (vitamin Epi scop D3) 1,250 D3) 1,250 D3) 1,250 al mcg (50,000 mcg (50,000 mcg H ealth unit) unit) (50,000 Outreac capsule capsule unit) h TAKE 1 TAKE 1 capsule Program CAPSULE CAPSULE TAKE 1 EVERY WEEK EVERY WEEK CAPSULE BY ORAL BY ORAL EVERY WEEK ROUTE. ROUTE. BY ORAL ROUTE. fenofibrate fenofibrate No fenofibrat [place] 54 mg 54 mg e 54 mg da tablet TAKE tablet TAKE tablet [facility] 1 TABLET BY 1 TABLET BY TAKE 1 al MOUTH EVERY MOUTH EVERY TABLET BY Health DAY DAY MOUTH Outreac EVERY DAY h Program amlodipine amlodipine No amlodipine [place] 10 mg 10 mg 10 mg da tablet TAKE tablet TAKE tablet Medical 1 TABLET 1 TABLET TAKE 1 Group EVERY DAY EVERY DAY TABLET BY ORAL BY ORAL EVERY DAY ROUTE. ROUTE. BY ORAL ROUTE. hydroxyzine hydroxyzine No hydroxyzin [place] HCl 25 mg HCl 25 mg e HCl 25 d a tablet TAKE tablet TAKE mg tablet Medical ONE (1) TO ONE (1) TO TAKE ONE Group TWO (2) TWO (2) (1) TO TWO TABLET(S) TABLET(S) (2) BY MOUTH BY MOUTH TABLET(S) NEEDED NEEDED BY MOUTH EVERY SIX EVERY SIX NEEDED TO EIGHT TO EIGHT EVERY SIX HOURS FOR HOURS FOR TO EIGHT ANXIETY. ANXIETY. HOURS FOR ANXIETY. amlodipine amlodipine No amlodipine [place] 10 mg 10 mg 10 mg da tablet TAKE tablet TAKE tablet Medical 1 TABLET 1 TABLET TAKE 1 Group EVERY DAY EVERY DAY TABLET BY ORAL BY ORAL EVERY DAY ROUTE. ROUTE. BY ORAL ROUTE. cholecalcif cholecalcif No cholecalci [place] simba simba ferol da (vitamin (vitamin (vitamin Med ical D3) 1,250 D3) 1,250 D3) 1,250 Group mcg (50,000 mcg (50,000 mcg unit) unit) (50,000 capsule capsule unit) TAKE 1 TAKE 1 capsule CAPSULE CAPSULE TAKE 1 EVERY WEEK EVERY WEEK CAPSULE BY ORAL BY ORAL EVERY WEEK ROUTE. ROUTE. BY ORAL ROUTE. hydroxyzine hydroxyzine No hydroxyzin [place] HCl 25 mg HCl 25 mg e HCl 25 d a tablet TAKE tablet TAKE mg tablet Medical ONE (1) TO ONE (1) TO TAKE ONE Group TWO (2) TWO (2) (1) TO TWO TABLET(S) TABLET(S) (2) BY MOUTH BY MOUTH TABLET(S) EVERY SIX EVERY SIX BY MOUTH TO EIGHT TO EIGHT EVERY SIX HOURS HOURS TO EIGHT NEEDED FOR NEEDED FOR HOURS ANXIETY. ANXIETY. NEEDED FOR ANXIETY. amlodipine amlodipine No amlodipine [place] 10 mg 10 mg 10 mg da tablet TAKE tablet TAKE tablet Medical 1 TABLET 1 TABLET TAKE 1 Group EVERY DAY EVERY DAY TABLET BY ORAL BY ORAL EVERY DAY ROUTE. ROUTE. BY ORAL ROUTE. cholecalcif cholecalcif No cholecalci [place] simba simba ferol da (vitamin (vitamin (vitamin Med ical D3) 1,250 D3) 1,250 D3) 1,250 Group mcg (50,000 mcg (50,000 mcg unit) unit) (50,000 capsule capsule unit) TAKE 1 TAKE 1 capsule CAPSULE CAPSULE TAKE 1 EVERY WEEK EVERY WEEK CAPSULE BY ORAL BY ORAL EVERY WEEK ROUTE. ROUTE. BY ORAL ROUTE. hydroxyzine hydroxyzine No hydroxyzin [place] HCl 25 mg HCl 25 mg e HCl 25 d a tablet TAKE tablet TAKE mg tablet Medical ONE (1) TO ONE (1) TO TAKE ONE Group TWO (2) TWO (2) (1) TO TWO TABLET(S) TABLET(S) (2) BY MOUTH BY MOUTH TABLET(S) EVERY SIX EVERY SIX BY MOUTH TO EIGHT TO EIGHT EVERY SIX HOURS HOURS TO EIGHT NEEDED FOR NEEDED FOR HOURS ANXIETY. ANXIETY. NEEDED FOR ANXIETY. omeprazole omeprazole No omeprazole [place] 20 mg 20 mg 20 mg da capsule,del capsule,del capsule,de Medical ayed ayed layed Group release release release TAKE ONE TAKE ONE TAKE ONE (1) (1) (1) CAPSULE(S) CAPSULE(S) CAPSULE(S) BY MOUTH BY MOUTH BY MOUTH EVERY DAY EVERY DAY EVERY DAY FOR 30 FOR 30 FOR 30 DAYS. DAYS. DAYS. Vital Signs Vital Name Observation Time Observation Value Comments Source BP Diastolic 2023-02-21 00:00:00 85 [facility]Hg[facility] Height 2023-02-21 00:00:00 66 [in_i] [facility] BMI (Body Mass 2023-02-21 00:00:00 46.1 kg/m2 [facility] Medical Index) Group BP Systolic 2023-02-21 00:00:00 128 [facility]Hg[facility] Body Weight 2023-02-21 00:00:00 285.9 [lb_av] [facility] Height 2023-02-06 00:00:00 67 [in_i] [place] [facility] BP Diastolic 2023-02-04 00:00:00 93 mm[Hg] [facility] Height 2023-02-04 00:00:00 66 [in_i] [facility] BMI (Body Mass 2023-02-04 00:00:00 46.9 kg/m2 [place] [facility] Medical Index) Group BP Systolic 2023-02-04 00:00:00 145 mm[Hg] [facility] Body Weight 2023-02-04 00:00:00 290.5 [lb_av] [facility] BP Diastolic 2023-01-27 00:00:00 95 mm[Hg] [place] [facility] Height 2023-01-27 00:00:00 67 [in_i] [place] [facility] BMI (Body Mass 2023-01-27 00:00:00 45.3 kg/m2 [place] [facility] supervisor Index) [facility] BP Systolic 2023-01-27 00:00:00 152 mm[Hg] [place] [facility] Body Weight 2023-01-27 00:00:00 4629 [oz_av] [place] [facility] BP Diastolic 2023-01-09 00:00:00 96 mm[Hg] [facility] Height 2023-01-09 00:00:00 66 [in_i] [facility] BMI (Body Mass 2023-01-09 00:00:00 46.6 kg/m2 [place] [facility] Medical Index) Group BP Systolic 2023-01-09 00:00:00 150 mm[Hg] [facility] Body Weight 2023-01-09 00:00:00 288.6 [lb_av] [facility] Height 2022-11-25 00:00:00 67 [in_i] [place] [facility] BMI (Body Mass 2022-11-25 00:00:00 44.2 kg/m2 [place] [facility] supervisor Index) [facility] BP Systolic 2022-11-25 00:00:00 161 mm[Hg] [place] [facility] Body Weight 2022-11-25 00:00:00 4515 [oz_av] [place] [facility] BP Systolic 2022-08-06 00:00:00 148 mm[Hg] [place] [facility] Body Weight 2022-08-06 00:00:00 281 [lb_av] [place] [facility] BP Diastolic 2022-08-06 00:00:00 100 mm[Hg] [place] [facility] Height 2022-08-06 00:00:00 67 [in_i] [place] [facility] BMI (Body Mass 2022-08-06 00:00:00 44 kg/m2 [place] [facility] supervisor Index) [facility] BP Diastolic 2022-02-19 00:00:00 85 mm[Hg] [place] [facility] Height 2022-02-19 00:00:00 67 [in_i] [place] [facility] BMI (Body Mass 2022-02-19 00:00:00 43.9 kg/m2 [place] [facility] supervisor Index) [facility] BP Systolic 2022-02-19 00:00:00 142 mm[Hg] [place] [facility] Body Weight 2022-02-19 00:00:00 4480 [oz_av] [place] [facility] BP Diastolic 2022-02-06 00:00:00 93 mm[Hg] [place] [facility] Height 2022-02-06 00:00:00 67 [in_i] [place] [facility] BMI (Body Mass 2022-02-06 00:00:00 43.4 kg/m2 [place] [facility] supervisor Index) [facility] BP Systolic 2022-02-06 00:00:00 145 mm[Hg] [place] [facility] Body Weight 2022-02-06 00:00:00 4432 [oz_av] [place] [facility] Systolic blood 2021-08-27 20:20:00 152 mm[Hg] Univer sity of pressure [facility] Diastolic blood 2021-08-27 20:20:00 107 [facility]Hg[facility] 2021-08-27 20:19:00 77 /min [facility] Body temperature 2021-08-27 20:19:00 37.11 [facility] Respiratory rate 2021-08-27 20:19:00 18 /min [facility] Body height 2021-08-27 20:19:00 167.6 cm [facility] Body weight 2021-08-27 20:19:00 127.007 kg [facility] BMI 2021-08-27 20:19:00 45.19 kg/m2 [facility] Procedures Procedure Date / Time Performing Clinician Source Performed REFERRAL- REQUEST/RESPONSE 2023-01-30 05:01:00 Doctor Unassigned , [facility] [place] [facility] US, kidney 2023-01-30 00:00:00 [facility] home sleep study 2023-01-30 00:00:00 [facility] unlisted imaging order 2023-01-09 00:00:00 [facility] US, transvaginal 2022-11-25 00:00:00 [facility] US, transvaginal 2022-08-06 00:00:00 [facility] Caesarean Section [facility] Plan of Care Planned Activity Planned Date Details Comments Source Future Scheduled Test 2023-04-28 lipid panel, serum [facility] 00:00:00 [code = lipid Health Outreac h panel, serum] Program Future Scheduled Test 2023-04-28 vitamin D, [place] [facility] 00:00:00 25-hydroxy, total, Health Ou treach serum [code = Program vitamin D, 25-hydroxy, total, serum] Future Scheduled Test 2023-04-28 CMP, serum or [place] [facility] 00:00:00 plasma [code = Health Outrea ch CMP, serum or Program plasma] Future Scheduled Test 2023-04-28 insulin, serum Armenta brii [facility] 00:00:00 [code = insulin, Health Outr each serum] Program Future Scheduled Test 2023-04-28 HbA1c (hemoglobin [place] [facility] 00:00:00 A1c), blood [code Health Out reach = HbA1c Program (hemoglobin A1c), blood] Future Scheduled Test 2023-04-28 thyroid panel, Armenta brii [facility] 00:00:00 serum [code = Health Outreac h thyroid panel, Program serum] Future Scheduled Test 2023-04-28 T4, free, serum [place] [facility] 00:00:00 [code = T4, free, Health Out reach serum] Program Diagnostic Test 2023-02-21 cytology, fna, [facility] Pending 00:00:00 thyroid [code = Group cytology, fna, thyroid] Encounters Start End Encounter Admission Attending Care Care Encounter Source Date/Time Date/Time Type Type Clinicians Facility Department ID 2022-08-13 Inpatient KAYCEE CRUZ, [facility] [id number] [place] 15:00:00 MALORIE -[id number] Formerly [facility] 2021-08-11 Emergency [facility] [id number] Univers 14:55:00 ity [facility] 2021-08-11 Emergency [facility] [id number] [facility] 2023-04-19 Emergency ER MAHSA, [facility] [id number] [place] 16:32:00 18:07:00 SATINDER [id number] [facility] 2023-03-26 2023-03-26 Outpatient Sherice AMADOR [facility] [id number] [facility] 09:00:00 09:00:00 DIANNE sne [facility] 2023-02-27 2023-02-27 Outpatient KAYCEE FONTENOT, [facility] [id number] [place] 08:02:00 08:02:00 ELISE -[id number] [facility] 2023-02-21 2023-02-21 Outpatient LAMIN HENRIQUEZ [facility] [id number] [place] 11:22:00 11:22:00 -[id number] [facility] 2023-02-21 2023-02-21 Lamin [place] MM [place] - [id number] [place] 00:00:00 00:00:00 : Dane Jiménez [facility] [address], [facility], Otolaryngol [place] bobbyTEDDY [id number] , Ph. 2023-02-14 2023-02-14 emergency [id number] 07:09:00 09:48:00 [id number] [id number] [id number] [id number] 2023-02-14 2023-02-14 Emergency ER MAHSA, [facility] [id number] [place] 07:09:00 09:48:00 SATINDER -[id number] [facility] 2023-02-13 2023-02-13 Outpatient Yan_W MMG MMG [id number] [place] 00:00:00 00:00:00 0504 [facility] 2023-02-13 2023-02-13 Outpatient Yan_W MMG MMG [id number] [place] 00:00:00 00:00:00 0511 [facility] 2023-02-13 2023-02-13 Outpatient Yan_W MMG MMG [id number] [place] 00:00:00 00:00:00 0512 [facility] 2023-02-13 2023-02-13 Outpatient Yan_W MMG MMG [id number] [place] 00:00:00 00:00:00 0525 [facility] 2023-02-06 2023-02-06 Outpatient Christine DORSEY MEHOP [id number] [place] 00:00:00 00:00:00 [id number] [facility] 2023-02-06 2023-02-06 Outpatient Christine DORSEY MEHOP [id number] [place] 00:00:00 00:00:00 [id number] [facility] 2023-02-06 2023-02-06 Outpatient Christine MEHOP MEHOP [id number] [place] 00:00:00 00:00:00 [id number] [facility] 2023-02-06 2023-02-06 Eliseenoc Hornn [facility] [place] - [id number] [place] 00:00:00 00:00:00 Hugo Fontenot MD: [id number] [facility] Epis picture copyist [place] [address] HOP - [facility] [address], [place] Program [id number] , Ph. 2023-02-04 2023-02-04 CASH Lopez [place] - [id number] [place] 00:00:00 00:00:00 MD: 600 [facility] [address], [facility], Otolaryngol [facility] [address] , Ph. 2023-01-30 2023-01-30 Orders Doctor ARVIZU [id number] Univers 00:00:00 00:00:00 Only Unassigned, TEVIN [id number] ity of [place] [facility] [id number] Vikas as [id number] [facility] 009 Branch 2023-01-27 2023-01-27 Outpatient LAMIN HENRIQUEZ [facility] [id number] [place] 09:50:00 09:50:00 -[id number] [facility] 2023-01-27 2023-01-27 Outpatient Laetsha_All MEHOP MEHOP [id number] [place] 00:00:00 00:00:00 [id number] [facility] 2023-01-27 2023-01-27 Outpatient Latesha_All [facility] 119 [id number] [place] 00:00:00 00:00:00 [id number] [facility] 2023-01-27 2023-01-27 Outpatient Latesha_All [facility] 119 [id number] [place] 00:00:00 00:00:00 [id number] [facility] 2023-01-27 2023-01-27 Outpatient Latesha_All [facility] 119 [id number] [place] 00:00:00 00:00:00 [id number] [facility] 2023-01-27 2023-01-[address] [facility] [place] - [id number] M atagor 00:00:00 00:00:00 Latesha: [address], [facility] [phone] [facility] , Ph. h (979) Program 2023-01-14 2023-01-14 Outpatient Yan_W MMG MMG [id number] [place] 00:00:00 00:00:00 0420 [facility] 2023-01-14 2023-01-14 Outpatient Yan_W MMG MMG [id number] [place] 00:00:00 00:00:00 0425 [facility] 2023-01-14 2023-01-14 Outpatient Yan_W MMG MMG [id number] [place] 00:00:00 00:00:00 0503 Medical Group 2023-01-09 2023-01-09 Outpatient KAYCEE MEADOWS LAMIN [facility] [id number] [place] 14:19:00 14:19:00 -[id number] [facility] 2023-01-09 2023-01-09 Outpatient Yan_W MMG MMG [id number] [place] 00:00:00 00:00:00 0404 Medical Group 2023-01-09 2023-01-09 Outpatient Yan_W MMG MMG [id number] [place] 00:00:00 00:00:00 0330 Medical Group 2023-01-09 2023-01-09 Lamin Denny MMG [place] - [id number] [place] 00:00:00 00:00:00 MD: Dane Jiménez [facility] [address], [facility], Otolaryngol [facility] [address] , Ph. 2023-01-08 2023-01-08 Outpatient Yan_W MMG [facility] [id number] [place] 00:00:00 00:00:00 0329 Medical Group 2022-12-13 2022-12-13 Outpatient Latesha_All DORSEY MEHOP 119 [id number] [place] 00:00:00 00:00:00 [id number] [facility] 2022-12-06 2022-12-06 [facility] [id number] [place] 00:00:00 00:00:00 0224 Medical Group 2022-12-04 2022-12-04 Outpatient Yan_W [place] [id number] [place] 00:00:00 00:00:00 0222 da Medical Group 2022-11-25 2022-11-25 Outpatient Latesha_All MEHOP MEHOP 119 [id number] [place] 00:00:00 00:00:00 [id number] [facility] 2022-11-25 2022-11-25 Outpatient Latesha_All ROBLEROHOP MEHOP 119 [id number] [place] 00:00:00 00:00:00 [id number] [facility] 2022-11-25 2022-11-25 Outpatient Latesha_All ROBLEROHOP MEHOP 119 [id number] [place] 00:00:00 00:00:00 [id number] [facility] 2022-11-25 2022-11-25 All IVORY [place] - [id number] M atagor 00:00:00 00:00:00 Latesha: 1700 [address] Norton [facility] Petre, [facility] [address] [facility] , Ph. h (979) Program 2022-08-06 2022-08-06 Outpatient Latesha_All DORSEY [facility] 119 [id number] [place] 00:00:00 00:00:00 [id number] [facility] 2022-08-06 2022-08-06 Malorie [facility] [place] - [id number] [place] 00:00:00 00:00:00 Soniya Ellis, Quaker Ep[facility] PLASMA CENTER TECHNICIAN: [address] [facility] [address] F N, STRUCTURAL ARCHITECT [facility] [address] [facility] , Ph. 2022-04-03 2022-04-03 Outpatient Latesha_All DORSEY [facility] 119 [id number] [place] 06:22:00 06:22:00 [id number] [facility] 2022-04-03 2022-04-03 Outpatient Latesha_All DORSEY [facility] 119 339-202 [place] 00:00:00 00:00:00 [id number] [facility] 2022-02-19 2022-02-19 Outpatient Latesha_All DORSEY [facility] 119 339-202 [place] 04:27:00 04:27:00 [id number] [facility] 2022-02-19 2022-02-[address] [facility] [place] - [id number] [place]or 00:00:00 00:00:00 Latesha: 1700 Hugo Norton [facility] Tamera, [facility] [address] [facility] , Ph. h (979) Program 2022-02-18 2022-02-18 Outpatient Latesha_All DORSEY [facility] 119 [id number] [place] 03:43:00 03:43:00 [id number] [facility] 2022-02-07 2022-02-07 Outpatient Latesha_All DORSEY SCHOP 119 [id number] [place] 09:23:00 09:23:00 [id number] [facility] 2022-02-06 2022-02-06 Outpatient Saha_All DORSEY [facility] 119 [id number] [place] 06:33:00 06:33:00 [id number] da Episcop [facility] Outre [facility] Program 2022-02-06 2022-02-06 All DORSEY [place] - [id number] M at[place]or 00:00:00 00:00:00 Latesha: [address], [facility] [address] [facility] , Ph. h (979) Program 2022-02-05 2022-02-05 Emergency ER MAHSA, [facility] [id number] [place] 05:04:00 06:39:00 SATINDER [id number] [facility] 2021-08-27 2021-08-27 [facility] [id number] Univers 14:00:00 14:57:05 DIANNE sen [facility] 2021-08-27 2021-08-27 [facility] 1.2.378.244 [id number] Univers 13:43:44 14:57:05 Visit Dianne YOUNGBLOOD 350.1.13.10 i ty of [place] 4.2.7.2.686 Lory s PROFESSIO [phone] [address] 2021-08-27 2021-08-27 Outpatient Sherice AMADOR [facility] [id number] Univers 14:00:00 14:00:00 DIANNE sen [facility] 2021-08-27 2021-08-27 Letter Marjorie [facility] 1.2.003.577 [id number] Univers 00:00:00 00:00:00 (Out) Dianne YOUNGBLOOD 350.1.13.10 i ty of [place] 4.2.7.2.686 [place] PROFESSIO [phone] [address] 2021-08-20 2021-08-20 [facility]patient [facility] [id number] Univers 13:00:00 13:00:00 DIANNE sen [facility] 2021-08-09 2021-08-09 Telephone Jama, Donnie [facility] 1.2.840.114 [id number] Univers 00:00:00 00:00:00 Cam RYLIE 350.1.13.10 i ty of [place].2.7.2.[place] [phone] Tn dical [facility] [address] [facility] 2021-07-03 2021-07-03 Outpatient R [facility] [id number] Univers 10:00:00 10:00:00 ity of [facility] 2021-07-03 2021-07-03 Patient Doctor [facility] 1.2.840.114 [id number] Univers 00:00:00 00:00:00 Secure Msg Unassigned, Rylie 350.1.13.10 ity of [place].7.2.[place] [phone] [address] 2021-05-17 2021-05-17 Outpatient [facility] [id number] Univers 14:00:00 14:00:00 JONATHAN itkip [facility] 2021-05-17 2021-05-17 [facility]phone [facility] 1.2.857.109 [id number] Univers 00:00:00 00:00:00 Lacey Youngblood 350.1.13.10 i ty of [place].2.[place] [phone] [facility] 2021-05-10 2021-05-10 Ancillary Lacey Garza [facility] 1.2.840. 114 [id number] Univers 14:38:31 15:49:18 Visit Jonathan Huggins 350.1.13.10 ity of [place].2.[place] [phone] Tn dical nal [address] [facility] 2021-04-30 2021-04-30 Ancillary Lacey Garza [facility] 1.2.840. 114 [id number] Univers 15:44:00 16:53:51 Visit Jonathan Huggins 350.1.13.10 ity of [place] 4[place]2.7.2.[place] [phone] Tn dical nal [address] [facility] 2021-04-30 2021-04-30 Outpatient R JOSELUIS [facility] [id number] Univers 15:40:00 15:40:00 JONATHAN [facility] 2021-04-18 2021-04-18 Office [facility] 1.2.892.680 [id number] Univers 13:43:30 15:02:39 Visit Dianne Youngblood 350.1.13.10 i ty of [place] 4.2.7.2.[place] [phone] Tn dical nal 134 [facility] 2021-04-18 2021-04-18 [facility] [id number] Univers 14:00:00 14:00:00 DIANNE [facility] 2021-04-17 2021-04-17 Outpatient R DONNIE JAMA [facility] [id number] Univers 10:00:00 10:00:00 [facility] 2021-04-16 2021-04-16 Telephone Dorene [facility] 1.2.840.114 [id number] Univers 00:00:00 00:00:00 Rickie Youngblood 350.1.13.10 i ty of [place] 4.2.7.2.[place] [phone] [facility] 134 [facility] 2021-04-03 2021-04-03 [facility] 1.2.840.114 [id number] Univers 17:32:27 23:59:00 Encounter Dianne Youngblood 350.1.13.10 ity [facility] 4.2.7.2.686 [place] [phone] [facility] [address] 2021-04-03 2021-04-03 [facility] [id number] Univers 00:00:00 00:00:00 DIANNE [facility] 2021-04-02 2021-04-02 Case [facility] 1.2.264.082 [id number] Univers 00:00:00 00:00:00 Management Dianne Youngblood 350.1.13.10 ity of [place] [id number] [address] 2021-04-02 2021-04-02 Telephone Marjorie [facility] 1.2.840.114 [id number] Univers 00:00:00 00:00:00 Dianne Youngblood 350.1.13.10 i ty of [place].2.[place] [phone] [address] 2021-04-02 2021-04-02 Case Marjorie [facility] 1.2.777.016 [id number] Univers 00:00:00 00:00:00 Management Dianne Youngblood 350.1.13.10 ity of [place] 4[place]2.7.2.[place] [id number] [address] 2021-03-28 2021-03-28 Outpatient R MARJORIE [facility] [id number] [facility] 16:15:00 16:15:00 DIANNE sen of [facility] 2021-03-28 2021-03-28 Office Marjorie [facility] 1.2.844.924 [id number] [facility] 12:57:11 14:20:21 Visit Dianne Youngblood 350.1.13.10 i ty of [place] 4.2.7.2.[place] [phone] [address] 2021-03-28 2021-03-28 Letter Marjorie [facility] 1.2.662.461 [id number] Univers 00:00:00 00:00:00 (Out) Dianne Youngblood 350.1.13.10 i ty of [place].2.7.2.[place] [phone] [address] 2021-01-01 2021-01-01 Patient Ajith [facility] 1.2.840.114 [id number] Univers 00:00:00 00:00:00 Outreach Carmine PRIMARY 350.1.13.10 i ty of Prudencio [facility] 4.2.7.2.686 [place] [phone] Tn dical [address] 2020 2020 Outpatient DONNIE VASQUEZ [facility] [id number] Univers 09:30:00 09:30:00 [facility] 2020-12-05 2020-12-05 Outpatient R MARJORIE [facility] [id number] Univers 15:15:00 15:15:00 [facility] 2020-11-21 2020-11-21 Outpatient R MARJORIE [facility] [id number] Univers 09:00:00 09:00:00 [facility] 2020-11-14 2020-11-14 Office [facility] 1.2.702.354 [id number] Univers 08:22:04 08:59:50 Visit Dianne Youngblood 350.1.13.10 i ty of [place] 4.2.7.2.[place] [phone] Tn dical nal 134 [facility] 2020-11-14 2020-11-14 [facility] [id number] Univers 08:00:00 08:00:00 [facility] 2020-11-14 2020-11-14 Orders Doctor [facility] 1.2.840.114 [id number] Univers 00:00:00 00:00:00 Only Unassigned, TEVIN 350.1.13.10 ity of [place] [facility] 4.2.7.2.[address] Vikas as [phone] [facility] [address] 2020-11-13 2020-11-13 Cured Meat Packing Supervisor 2, Adc Lab [facility] 1.2.840.114 [id number] Univers 09:30:50 09:45:50 Visit Donnie Jama 350.1.13.10 ity of [place] 4.2.7.2.[place] [phone] Tn dical nal 353 [facility] 2020-11-13 2020-11-13 Outpatient R DONNIE JAMA [facility] [id number] Univers 09:30:00 09:30:00 ity [facility] 2020-11-13 2020-11-13 Case Donnie Jama [facility] 1.2.935.775 [id number] Univers 00:00:00 00:00:00 Management Cam [place] 350.1.13.10 ity of [place] 4.2.7.2.[place] [phone] Tn dical nal 134 [facility] 2020-11-10 2020-11-10 Telephone Donnie Jama [facility] 1.2.840.114 [id number] Univers 00:00:00 00:00:00 Cam [place] 350.1.13.10 i ty of [place] 4.2.7.2.[place] [phone] Tn dical nal 134 [facility] 2020-11-07 2020-11-07 Case Donnie Jama [facility] 1.2.404.279 [id number] Univers 00:00:00 00:00:00 Management Cam [place] 350.1.13.10 ity of [place] 4.2.7.2.[place] [phone] Tn dical nal [address] [place] [address] 2020-11-03 2020-11-03 Telephone Donnie Jama [facility] 1.2.840.114 [id number] Univers 00:00:00 00:00:00 Cam [place] 350.1.13.10 i ty of [place] 4.2.7.2.[place] [phone] Tn dical nal [address] [place] [address] 2020-11-01 2020-11-01 Office Donnie Jama [facility] 1.2.788.629 [id number] Univers 14:44:40 16:48:19 Visit Rickie Ayalaton 350.1.13.10 i ty of [place] 4.2.7.2.[place] [phone] Tn dical nal 134 [facility] 2020-11-01 2020-11-01 Cured Meat Packing Supervisor 2, [facility] Marisol [facility] 1.2.840.114 [id number] Univers 15:14:51 15:29:51 Visit Dorene Jamasadaf Youngblood 350.1.13.10 ity of [place] 4.2.7.2.[place] [phone] Tn dickadeem nal 353 [facility] 2020-11-01 2020-11-01 Outpatient R DONNIE JAMA [facility] [id number] Univers 14:45:00 14:45:00 ity of [facility] 2020-10-26 2020-10-26 Routine Dorene [facility] 1.2.299.675 [id number] Univers 12:38:04 13:31:34 [place] 350.1.13.10 ity of Visit [place] 4.2.7.2.[place] [phone] Tn dickadeem [address] 2020-10-26 2020-10-26 Outpatient R EVITA [facility] [id number] Univers 13:00:00 13:00:00 ity of [facility] 2020-10-25 2020-10-25 Cured Meat Packing Supervisor Lana, [facility] Lab Main [facility] 1.2.8 40.114 [id number] Univers 17:25:18 17:40:18 Visit Donnie Jama Rickie Ayalaton 350.1.13.10 ity of [place] 4.2.7.2.[place] [phone] [address] 2020-10-25 2020-10-25 Routine Evita [facility] 1.2.524.001 [id number] Univers 13:36:17 17:06:17 [place] 350.1.13.10 ity of Visit [place] 4.2.7.2.686 [place] [phone] Tn dickadeem [address] 2020-10-25 2020-10-25 Outpatient R DONNIE JAMA [facility] [id number] Univers 14:00:00 14:00:00 ity of [facility] 2020-10-23 2020-10-23 [facility] 1.2.840.114 [id number] Univers 17:30:00 23:59:00 Encounter Dianne Youngblood 350.1.13.10 ity of [place] 4.2.7.2.686 [place] [phone] [address] 2020-10-23 2020-10-23 Outpatient R MARJORIE [facility] [id number] Univers 00:00:00 00:00:00 DIANNE ity [facility] 2020-10-20 2020-10-20 Outpatient R DONNIE JAMA [facility] [id number] Univers 09:45:00 09:45:00 ity of [facility] 2020-10-20 2020-10-20 Cured Meat Packing Supervisor 2, [facility] Lab [facility] 1.2.840.114 [id number] Univers 09:12:32 09:27:32 Visit Donnie Jama 350.1.13.10 ity of [place] 4.2.7.2.[place] [phone] [facility] 353 [facility] 2020-10-18 2020-10-18 Outpatient R DONNIE JAMA [facility] [id number] Univers 09:15:00 09:15:00 ity [facility] 2020-10-18 2020-10-18 Cured Meat Packing Supervisor 2, [facility] Lab [facility] 1.2.840.114 [id number] Univers 08:38:03 08:53:03 Visit Donnie Jama Rylie 350.1.13.10 ity of [place] 4.2.7.2.[place] [phone] [facility] 353 [facility] 2020-10-18 2020-10-18 Case Marjorie [facility] 1.2.853.884 [id number] Univers 00:00:00 00:00:00 Management Dianne Youngblood 350.1.13.10 ity of [place] 4.2.7.2.[place] [phone] [facility] 134 [facility] 2020-10-16 2020-10-16 Emergency Elio Bose [facility] 1.2.840.114 [id number] Univers 18:03:00 19:27:00 Nasreen Youngblood 350.1.13.10 i ty of [place] 4.2.7.2.686 [place] [phone] [facility] [address] [place] 2020-10-16 2020-10-16 Cured Meat Packing Supervisor 2, Adc Lab [facility] 1.2.840.114 [id number] Univers 09:27:47 09:42:47 Visit Donnie Jama Rylie 350.1.13.10 ity of [place] 4.2.7.2.[place] [phone] Tn dical nal 353 [facility] 2020-10-16 2020-10-16 Outpatient R DONNIE JAMA [facility] [id number] Univers 09:30:00 09:30:00 ity of [facility] 2020-10-16 2020-10-16 Case [facility] 1.2.851.479 [id number] Univers 00:00:00 00:00:00 Management Dianne Youngblood 350.1.13.10 ity of [place] 4.2.7.2.[place] [phone] Tn dical nal 134 [facility] 2020-10-16 2020-10-16 Orders Doctor [facility] 1.2.840.114 [id number] Univers 00:00:00 00:00:00 Only Unassigned, TEVIN 350.1.13.10 ity of [place] [facility] 4.2.7.2.686 Vikas as [phone] [facility] [address] [place] 2020-10-12 2020-10-12 [facility] 1.2.840.114 [id number] Univers 09:32:05 23:59:00 Encounter Dianne Youngblood 350.1.13.10 ity of [place] 4.2.7.2.686 [place] [phone] [facility] [address] [place] 2020-10-12 2020-10-12 [facility] [id number] Univers 00:00:00 00:00:00 DIANNE ity of [facility] 2020-10-12 2020-10-12 Orders Doctor [facility] 1.2.840.114 [id number] Univers 00:00:00 00:00:00 Only Unassigned, TEVIN 350.1.13.10 ity of [place] [facility]OSP[facility] 4.2.7.2.686 Vikas as [phone] [address] 2020-10-12 2020-10-12 Case [facility] 1.2.254.990 [id number] Univers 00:00:00 00:00:00 Management Dianne Youngblood 350.1.13.10 ity of [place] 4.2.7.2.[place] [phone] Tn dical nal 134 [facility] 2020-10-12 2020-10-12 Telephone Donnie Jama [facility] 1.2.840.114 [id number] Univers 00:00:00 00:00:00 Cam [place] 350.1.13.10 i ty of [place] 4.2.7.2.[place] [phone] Tn dical nal 134 [facility] 2020-10-12 2020-10-12 Donnie Thomas [facility] 1.2.342.474 [id number] Univers 00:00:00 00:00:00 Management Rickie Youngblood 350.1.13.10 ity of [place] 4.2.7.2.686 [place] [phone] Tn dical nal [address] [place] [address] 2020-10-11 2020-10-11 Outpatient R [facility] [id number] Univers 10:00:00 10:00:00 ity of [facility] 2020-10-11 2020-10-11 Cured Meat Packing Supervisor 2, Adc Lab [facility] 1.2.840.114 [id number] Univers 09:43:31 09:58:31 Visit Donnie Jama 350.1.13.10 ity of [place] 4.2.7.2.[place] [phone] Tn dical lily 353 [facility] 2020-10-11 2020-10-11 Case [facility] 1.2.328.107 [id number] Univers 00:00:00 00:00:00 Management Dianne Youngblood 350.1.13.10 ity of [place] 4.2.7.2.[place] [phone] Tn dical nal 134 [facility] 2020-10-09 2020-10-09 Outpatient R [facility] [id number] Univers 10:00:00 10:00:00 ity of [facility] 2020-10-09 2020-10-09 Cured Meat Packing Supervisor 2, Adc Lab [facility] 1.2.840.114 [id number] Univers 09:35:28 09:50:28 Visit Donnie Jama Rickie Youngblood 350.1.13.10 ity of [place] 4.2.7.2.[place] [phone] Tn dical nal 353 [facility] 2020-10-09 2020-10-09 Case Marjorie [facility] 1.2.363.165 [id number] Univers 00:00:00 00:00:00 Management Dianne Youngblood 350.1.13.10 ity of [place] 4.2.7.2.[place] [phone] Tn dical formerly [facility] 134 [facility] 2020-10-04 2020-10-04 Outpatient R MARJORIE [facility] [id number] Univers 15:45:00 15:45:00 DIANNE itkip [facility] 2020-10-04 2020-10-04 Routine [facility] 1.2.656.427 [id number] Univers 10:36:40 11:31:56 Dianne Youngblood 350.1.13.10 ity of [place] 4.2.7.2.[place] [phone] Tn dical nal 134 [facility] 2020-10-03 2020-10-03 Emergency Elio Bose [facility] 1.2.840.114 [id number] Univers 14:14:00 15:41:00 Nasreen Youngblood 350.1.13.10 i ty of [place] 4.2.7.2.686 [place] [phone] [facility] [address] [place] [address] 2020-10-03 2020-10-03 Telephone Donnie Jama [facility] 1.2.840.114 [id number] Univers 00:00:00 00:00:00 Rickie Youngblood 350.1.13.10 i ty of [place] 4.2.7.2.[place] [phone] Tn dical nal 134 [facility] 2020-10-02 2020-10-02 Emergency ER OWO, [facility] [id number] [place] 16:29:00 20:15:00 -[id number] [facility] 2020-10-02 2020-10-02 Telephone Donnie Jama [facility] 1.2.840.114 [id number] Univers 00:00:00 00:00:00 Cam Rylie 350.1.13.10 i ty of [place] 4.2.7.2.[place] [phone] Tn dic[address] 2020-10-02 2020-10-02 Telephone Donnie Jama [facility] 1.2.840.114 [id number] Univers 00:00:00 00:00:00 [place] 350.1.13.10 i ty of [place] 4.2.7.2.[place] [phone] [address] 2020-09-28 2020-09-28 Initial Donnie Jama [facility] 1.2.422.969 [id number] Univers 09:57:43 10:54:15 Rickie Youngblood 350.1.13.10 ity of [place] 4.2.7.2.[place] [phone] [address] 2020-09-28 2020-09-28 Outpatient R EVITA DONNIE [facility] [id number] Univers 10:00:00 10:00:00 ity of [facility] 2020-05-29 2020-05-29 [facility] 1.2.840.114 [id number] Univers 00:00:00 00:00:00 Nitesh Vasquez CHISELER HEAD 350.1.13.10 ity [facility] 4.2.7.2.686 Vikas as MATERNAL [phone] Med ical & CHILD [address] [place] [address] 2020-02-09 2020-02-09 Outpatient R UCHE [facility] [id number] [id number] Univers 09:00:00 09:00:00 NITESH armando [facility] 2020-02-07 2020-02-07 Outpatient R UCHE [facility] [id number] Univers 15:30:00 15:30:00 NITESH armando [facility] 2020-02-07 2020-02-07 Telemedici Uche [facility] 1.2.840.114 [id number] Univers 12:50:41 13:05:41 ne Visit Nitesh C CHISELER HEAD 350.1.13.10 ity of REGIONAL 4.2.7.2.686 Vikas as MATERNAL [phone] Med ical & CHILD 107 [facility] 2020-02-07 2020-02-[address] [facility] 1.2.840.114 [id number] 12:50:41 13:05:41 ne Visit Nitesh C CHISELER HEAD 350.1.13.10 REGIONAL 4.2.7.2.686 MATERNAL [phone] & CHILD [address] [place] [address] 2019-11-08 2019-11-08 Office Ardengamaliel [facility] [id number] [facility] 10:26:06 11:30:34 Visit Nitesh C CHISELER HEAD 350.1.13.10 ity of REGIONAL 4.2.7.2.686 Vikas as MATERNAL [phone] Med ical & CHILD [address] [place] [address] 2019-11-08 2019-11-08 Office Ardengamaliel [facility] [id number] 10:26:06 11:30:34 Visit Nitseh C CHISELER HEAD 350.1.13.10 REGIONAL 4.2.7.2.686 MATERNAL [phone] & CHILD [address] [place] [address] 2019-11-08 2019-11-08 Telephone Brandon [facility] 1.2.840.114 [id number] [facility] 00:00:00 00:00:00 Christin Yeung CHISELER HEAD 350.1.13.10 it y of REGIONAL 4.2.7.2.686 Vikas as MATERNAL [phone] Med ical & CHILD 107 [facility] 2019-11-02 2019-11-02 Office Brandon [facility] [id number] [facility] 10:32:17 11:17:04 Visit Christin Yeung CHISELER HEAD 350.1.13.10 it y of REGIONAL 4.2.7.2.686 Vikas as MATERNAL [phone] Med ical & CHILD 107 [facility] 2019-11-02 2019-11-02 Orders Doctor ARVIZU 1.2.840.114 [id number] 00:00:00 00:00:00 Only Unassigned, TEVIN 350.1.13.10 ity of [place] [facility] 4.2.7.2.686 Vikas as [phone] [place] [address] Branch Results Test Description Test Time Test Comments Results Result Comments Source fine needle aspirate C# 2023-02-26 13:59:00 Test Item Value Reference Range Interpretation Comme nts fine needle aspirate C# (test code = fine needle aspirate see separ ate report C#) [facility] [id number] 18:06:00 Test Item Value Reference Range Interpretation Comments thyroid stimulating hormone L 1.97 uIU/mL 0.36-3.74 (test code = thyroid stimulating hormone L) [facility] [id number] 16:59:00 Test Item Value Reference Range Interpretation Comments free T3 (test code = free T3) 2.93 pg/mL 2.0-4.4 [facility] [id number] 16:59:00 Test Item Value Reference Range Interpretation Comments free T3 (test code = free T3) 2.93 pg/mL 2.0-4.4 [facility] free [Mass/volume] in Serum or Plasma 2023-01-09 00:00:00 Test Item Value Reference Range Interpretation Comments free T4 (test code = free T4) 1.11 NG/dL 0.93-1.7 [facility], [id number] 16:14:00 Test Item Value Reference Range Interpretation Comments Strep (test code = Strep) negative [facility] ProgramUrinalysis macro (dipstick) panel - [id number] 15:44:25 Test Item Value Reference Range Interpretation Comments Leukocytes (test code = Leukocytes) neg Nitrite (test code = Nitrite) neg Urobilinogen (test code = neg Urobilinogen) Protein (test code = Protein) + pH (test code = pH) 6.0 Blood (test code = Blood) neg Specific Stanley (test code = Specific 1.030 Stanley) Ketone (test code = Ketone) neg Bilirubin (test code = Bilirubin) neg Glucose (test code = Glucose) neg Appearance (test code = Appearance) cloudy Color (test code = Color) yellow [facility], [id number] 00:00:00 Test Item Value Reference Range Interpretation Comments Interpretation and review of laboratory note results (test code = 93129-2) Report (test code = 43444-8) . [facility] CenterComprehensive [facility] 2000 panel - Serum or [id number] 00:00:00 Test Item Value Reference Range Interpretation Comments Glucose [Mass/volume] in 99 mg/dL 65-99 Serum or Plasma (test code = 2345-7) Urea nitrogen [Mass/volume] 9 mg/dL 6-20 in Serum or Plasma (test code = 3094-0) Creatinine [Mass/volume] in 0.62 mg/dL 0.57-1.00 Serum or Plasma (test code = 2160-0) eGFR (test code = eGFR) 118 mL/min/1.73 >59 Urea nitrogen/Creatinine 15 9-23 [Mass Ratio] in Serum or Plasma (test code = 3097-3) Sodium [Moles/volume] in 141 mmol/L 134-144 Serum or Plasma (test code = 2951-2) Potassium [Moles/volume] in 4.6 mmol/L 3.5-5.2 Serum or Plasma (test code = 2823-3) Chloride [Moles/volume] in 103 mmol/L 96-106 Serum or Plasma (test code = 2075-0) Carbon dioxide, total 21 mmol/L 20-29 [Moles/volume] in Serum or Plasma (test code = 2027-9) Calcium [Mass/volume] in 9.3 mg/dL 8.7-10.2 Serum or Plasma (test code = 85418-9) Protein [Mass/volume] in 7.0 g/dL 6.0-8.5 Serum or Plasma (test code = 2885-2) Albumin [Mass/volume] in 4.4 g/dL 3.8-4.8 Serum or Plasma (test code = 1751-7) Globulin [Mass/volume] in 2.6 g/dL 1.5-4.5 Serum by calculation (test code = 41494-1) Albumin/Globulin [Mass Ratio] 1.7 1.2-2.2 in Serum or Plasma (test code = 1759-0) Bilirubin.total [Mass/volume] <0.2 0.0-1.2 in Serum or Plasma (test code = 1974-2) Alkaline phosphatase 66 IU/L 44-121 [Enzymatic activity/volume] in Serum or Plasma (test code = 6768-6) Aspartate aminotransferase 15 IU/L 0-40 [Enzymatic activity/volume] in Serum or Plasma (test code = 1920-8) Alanine aminotransferase 21 IU/L 0-32 [Enzymatic activity/volume] in Serum or Plasma (test code = 1742-6) [facility] CenterUrinal[facility] dipstick W Reflex Microscopic panel - [id number] 00:00:00 Test Item Value Reference Range Interpretation Comments Specific gravity of Urine by 1.016 1.005-1.030 Test strip (test code = 5811-5) pH of Urine by Test strip 7.5 5.0-7.5 (test code = 5803-2) Color of Urine (test code = orange yellow 5778-6) Appearance of Urine (test code clear clear = 5767-9) Leukocyte esterase [Presence] negative negative in Urine by Test strip (test code = 5799-2) Protein [Presence] in Urine by 1+ negative/trace A Test strip (test code = 45935-1) Glucose [Presence] in Urine by negative negative Test strip (test code = 40707-3) Ketones [Presence] in Urine by negative negative Test strip (test code = 2514-8) Hemoglobin [Presence] in Urine 3+ negative A by Test strip (test code = 5794-3) Creatinine [Mass/volume] in 57.8 mg/dL not estab. Urine (test code = 2161-8) Protein [Mass/volume] in Urine 12.0 mg/dL not estab. (test code = 2888-6) Protein/Creatinine [Mass 208 mg/g creat 0-200 H Ratio] in Urine (test code = 2890-2) Bilirubin.total [Presence] in negative negative Urine by Test strip (test code = 5770-3) Urobilinogen [Mass/volume] in 0.2 mg/dL 0.2-1.0 Urine by Test strip (test code = 25477-1) Nitrite [Presence] in Urine by negative negative Test strip (test code = 5802-4) Microscopic observation see below: [Identifier] in Urine sediment by Light microscopy (test code = 20100-3) Leukocytes [#/area] in Urine 0-5 0-5 sediment by Microscopy high power field (test code = 5821-4) Erythrocytes [#/area] in Urine >30 0-2 A sediment by Microscopy high power field (test code = 51867-9) Epithelial cells [#/area] in 0-10 0-10 Urine sediment by Microscopy high power field (test code = 5787-7) Epithelial cells.renal sap project manager [#/area] in Urine sediment by Microscopy high power field (test code = 07194-8) Casts [Presence] in Urine none seen none seen sediment by Light microscopy (test code = 99597-8) Casts [Type] in Urine sediment sap project manager by Light microscopy (test code = 05864-6) Unidentified crystals sap project manager [Presence] in Urine sediment by Light microscopy (test code = 5783-6) Crystals [type] in Urine sap project manager sediment by Light microscopy (test code = 5782-8) Mucus [Presence] in Urine sap project manager sediment by Light microscopy (test code = 8247-9) Bacteria [#/area] in Urine few none seen/few sediment by Microscopy high power field (test code = 5769-5) Yeast [#/area] in Urine sap project manager sediment by Microscopy high power field (test code = 5822-2) Trichomonas vaginalis sap project manager [Presence] in Urine sediment by Light microscopy (test code = 5813-1) Urine sediment comments by sap project manager Light microscopy Narrative (test code = 64977-5) [facility] Center[facility] and TSH panel - Serum or [id number] 00:00:00 Test Item Value Reference Range Interpretation Comments Thyrotropin [Units/volume] in 1.580 uIU/mL 0.450-4.500 Serum or Plasma by Detection limit <= 0.005 mIU/L (test code = 13401-7) Thyroxine (T4) free 1.27 NG/dL 0.82-1.77 [Mass/volume] in Serum or Plasma (test code = 3024-7) [facility] ProgramCBC [facility] Auto Differential panel - Blood 2022-02-08 00:00:00 Test Item Value Reference Range Interpretation Comments Leukocytes [#/volume] in Blood 8.9 x10e3/uL 3.4-10.8 by Automated count (test code = 6690-2) Erythrocytes [#/volume] in 5.25 x10e6/uL 3.77-5.28 Blood by Automated count (test code = 789-8) Hemoglobin [Mass/volume] in 14.5 g/dL 11.1-15.9 Blood (test code = 718-7) Hematocrit [Volume Fraction] of 44.3 % 34.0-46.6 Blood by Automated count (test code = 4544-3) Erythrocyte mean corpuscular 84 fL 79-97 volume [Entitic volume] by Automated count (test code = 787-2) Erythrocyte mean corpuscular 27.6 pg 26.6-33.0 hemoglobin [Entitic mass] by Automated count (test code = 785-6) Erythrocyte mean corpuscular 32.7 g/dL 31.5-35.7 hemoglobin concentration [Mass/volume] by Automated count (test code = 786-4) Erythrocyte distribution width 13.0 % 11.7-15.4 [Ratio] by Automated count (test code = 788-0) Platelets [#/volume] in Blood 381 x10e3/uL 150-450 by Automated count (test code = 777-3) Neutrophils/100 leukocytes in 56 % not estab. Blood by Automated count (test code = 770-8) Lymphocytes/100 leukocytes in 35 % not estab. Blood by Automated count (test code = 736-9) Monocytes/100 leukocytes in 6 % not estab. Blood by Automated count (test code = 5905-5) Eosinophils/100 leukocytes in 2 % not estab. Blood by Automated count (test code = 713-8) Basophils/100 leukocytes in 1 % not estab. Blood by Automated count (test code = 706-2) immature cells (test code = sap project manager immature cells) Neutrophils [#/volume] in Blood 5.0 x10e3/uL 1.4-7.0 by Automated count (test code = 751-8) Lymphocytes [#/volume] in Blood 3.1 x10e3/uL 0.7-3.1 by Automated count (test code = 731-0) Monocytes [#/volume] in Blood 0.5 x10e3/uL 0.1-0.9 by Automated count (test code = 742-7) Eosinophils [#/volume] in Blood 0.2 x10e3/uL 0.0-0.4 by Automated count (test code = 711-2) Basophils [#/volume] in Blood 0.1 x10e3/uL 0.0-0.2 by Automated count (test code = 704-7) Immature granulocytes/100 0 % not estab. leukocytes in Blood by Automated count (test code = 33490-0) Immature granulocytes 0.0 x10e3/uL 0.0-0.1 [#/volume] in Blood by Automated count (test code = 03900-3) Nucleated erythrocytes/100 sap project manager leukocytes [Ratio] in Blood by Automated count (test code = 42707-3) Morphology [Interpretation] in sap project manager Blood Narrative (test code = 84048-7) [facility] CenterLipid 1996 panel - Serum or Plasma 2022-02-08 00:00:00 Test Item Value Reference Range Interpretation Comments Cholesterol [Mass/volume] in Serum 201 mg/dL 100-199 H or Plasma (test code = 2093-3) Triglyceride [Mass/volume] in Serum 534 mg/dL 0-149 H or Plasma (test code = 2571-8) Cholesterol in HDL [Mass/volume] in 30 mg/dL >39 L Serum or Plasma (test code = 2085-9) Cholesterol in VLDL [Mass/volume] 87 mg/dL 5-40 H in Serum or Plasma by calculation (test code = 10425-8) Cholesterol in LDL [Mass/volume] in 84 mg/dL 0-99 Serum or Plasma by calculation (test code = 14413-0) Laboratory comment [Text] in Report sap project manager Narrative (test code = 09934-2) [facility] CenterFolate+Cyanocobalamin [Interpretation] in Serum or [id number] 00:00:00 Test Item Value Reference Range Interpretation Comments Cobalamin (Vitamin B12) 377 pg/mL 232-1245 [Mass/volume] in Serum or Plasma (test code = 2132-9) Folate [Mass/volume] in Serum or 6.6 NG/mL >3.0 Plasma (test code = 2284-8) [facility] CenterHemoglobin A1c/Hemoglobin.total in [id number] 00:00:00 Test Item Value Reference Range Interpretation Comments Hemoglobin A1c/Hemoglobin.total in 5.5 % 4.8-5.6 Blood (test code = 4548-4) Glucose mean value [Mass/volume] in 111 mg/dL Blood Estimated from glycated hemoglobin (test code = 01105-6) [facility]25-Hydroxyvitamin D3+25- Hydroxyvitamin D2 [Mass/volume] in Serum or [id number] 00:00:00 Test Item Value Reference Range Interpretation Comments 25-Hydroxyvitamin 14.1 NG/mL 30.0-100.0 L D3+25-Hydroxyvitamin D2 [Mass/volume] in Serum or Plasma (test code = 77829-8) [facility]
[2023-08-27] MEDS ORDERED: ONDANSETRON 4 MG/2 ML VIAL ONE (23:30)
[2023-08-27 23:44] LABS: Absolute Lymphocytes (CBC) 2.7 K/uL (0.7-4.9); Hematocrit 37.2 % (36.0-45.0); Lymphocytes % 42.5 % (15.3-44.8); MCV 80.9 fL (80-100); MPV 8.1 fL (7.6-11.3); Platelets 297 thou/uL (152-406)
[2023-08-27 23:49] LABS: Albumin 3.2 g/dL (3.4-5.0); Bilirubin Total 0.2 mg/dL (0.2-1.0); Potassium 3.8 mEq/L (3.5-5.1); Protein, Total 7.5 g/dL (6.4-8.2)
[2023-08-28 00:03] LABS: Specific Gravity 1.029 (1.005-1.030)
[2023-08-28 00:14] LABS: Specific Gravity 1.029 (1.005-1.030); Urine Bacteria 20-50 /HPF (<20); Urine Bilirubin NEGATIVE (Negative); Urine Blood 3+ (OVER) (Negative); Urine Clarity Extremely Turbid (Clear); Urine Color Yellow (Yellow); Urine Glucose NEGATIVE (Negative); Urine Mucus 1+ /HPF (None Seen); Urine Protein 1+ (Negative); Urine Urobilinogen Normal (Normal)
--- NOTE | 2023-08-28 02:10 | EDPHYS ---
Physician Documentation [facility] Name: Tanya Leija Age: 37 yrs Sex: Female : 1985 Arrival Date: 08/27/2023 Time: 19:42 Bed 8 Private MD: ED Physician Mohinder Garcia HPI: 08/27 21:00 This 37 yrs old Female presents to ER via Ambulatory with complaints of Abdominal Pain. cp 21:00 The patient presents with abdominal pain that is diffuse, abdominal distention that is cp diffuse. Onset: The symptoms/episode began/occurred today, about 1500. 21:00 Associated signs and symptoms: Pertinent negatives: constipation, diarrhea, dysuria, cp fever, vomiting. The symptoms are described as described as feeling "bloated". Severity of pain: in the emergency department the pain is unchanged despite home interventions. 21:00 The symptoms do not radiate. cp Historical: - Allergies: 20:13 No Known Allergies; mb9 - Home Meds: 20:13 lisinopril 10 mg Oral tab 1 tab once daily [Active]; control [Active]; mb9 - PMHx: 20:13 Hypertension; mb9 - Immunization history:: Adult Immunizations up to date. - Social history:: Smoking status: Patient denies any tobacco usage or history of. ROS: 21:05 Constitutional: Negative for body aches, chills, fever, poor PO intake, cp 21:05 Eyes: Negative for injury, pain, redness, and discharge, cp 21:05 ENT: Negative for drainage from ear(s), ear pain, sore throat, difficulty swallowing, difficulty handling secretions, 21:05 Cardiovascular: Negative for chest pain, edema, palpitations, 21:05 Respiratory: Negative for cough, shortness of breath, wheezing, 21:05 Abdomen/GI: Positive for abdominal pain, abdominal distension, Negative for vomiting, diarrhea, constipation, anorexia, 21:05 : Negative for urinary symptoms, 21:05 Neuro: Negative for altered mental status, headache, weakness, 21:05 All other systems are negative, Exam: 21:10 Constitutional: The patient appears in no acute distress, alert, awake, non-toxic, well cp developed, well nourished, obese, uncomfortable, 21:10 Head/Face: Normocephalic, atraumatic. cp 21:10 Eyes: Periorbital structures: appear normal, Conjunctiva: normal, no exudate, no injection, Sclera: no appreciated abnormality, Lids and lashes: appear normal, bilaterally, 21:10 ENT: External ear(s): are unremarkable, Nose: is normal, Mouth: Lips: moist, Oral mucosa: pink and intact, moist, Posterior pharynx: is normal, airway is patent, no erythema, no exudate, 21:10 Chest/axilla: Inspection: normal, 21:10 Cardiovascular: Rate: tachycardic, Rhythm: regular, 21:10 Respiratory: the patient does not display signs of respiratory distress, Respirations: normal, no use of accessory muscles, no retractions, labored breathing, is not present, Breath sounds: are clear throughout, no decreased breath sounds, no stridor, no wheezing, 21:10 Abdomen/GI: Inspection: obese Bowel sounds: active, all quadrants, Palpation: soft, in all quadrants, moderate abdominal tenderness, in all quadrants, rebound tenderness, is not appreciated, involuntary guarding, is not appreciated, 21:10 Back: pain, is absent, ROM is normal, 21:10 Skin: no rash present. 21:10 Neuro: Orientation: to person, place \\T\\ time. Mentation: is normal, Motor: moves all fours, strength is normal, Sensation: is normal, Vital Signs: 20:12 BP 170 / 98; Pulse 100; Resp 16; Temp 97.8; Pulse Ox 98% ; Weight 132.45 kg; Height 5 mb9 ft. 6 in. ; 22:45 BP 111 / 82; Pulse 82; Resp 16 S; Pulse Ox 98% on R/A; as6 23:30 BP 116 / 76; Pulse 80; Resp 18 S; Pulse Ox 99% on R/A; ha1 08/28 01:30 BP 124 / 77; Pulse 67; Resp 18 S; Pulse Ox 98% on R/A; as6 03:00 BP 130 / 75; Pulse 65; Resp 18 S; Pulse Ox 99% on R/A; ha1 08/27 20:12 Body Mass Index 47.13 (132.45 kg, 167.64 cm) mb9 MDM: 08/27 20:15 Patient medically screened. cp 21:00 Differential diagnosis: bowel obstruction, diverticulitis, gastritis, gastroesophageal cp reflux disease, non-specific abd pain, pancreatitis, Ureterolithiasis, urinary tract infection. 08/28 02:08 Data reviewed: vital signs, nurses notes, lab test result(s), radiologic studies, CT cp scan. 02:08 I considered the following discharge prescriptions or medication management in the emergency department Medications were administered in the Emergency Department. See MAR. Counseling: I had a detailed discussion with the patient and/or guardian regarding the historical points, exam findings, and any diagnostic results supporting the discharge/admit diagnosis, lab results, radiology results, to return to the emergency department if symptoms worsen or persist or if there are any questions or concerns that arise at home. Special discussion: Based on the patient's Hx, exam, and Dx evaluation, there is no indication for emergent surgery or inpatient Tx. It is understood by the patient/guardian that if the Sx's persist or worsen they need to return immediately for re-evaluation. 08/27 20:43 Order name: CBC with Diff; Complete Time: 00:08 08/27 20:43 Order name: CMP; Complete Time: 00:08 08/28 00:31 Interpretation: Normal except: CL 108; GLUC 112; GFR 80; ALB 3.2; GLOB 4.3; A/G 0.7. 08/27 20:43 Order name: Lipase; Complete Time: 00:08 08/27 20:43 Order name: Test, Urine; Complete Time: 00:31 08/27 20:43 Order name: Urinalysis w/ reflexes; Complete Time: 00:31 08/28 00:31 Interpretation: Normal except: [facility] Extremely Turbid; UBLD 3+ (OVER); UPROT 1+; URBC cp 11-20; UBACT 20-50. 08/27 22:55 Order name: CT Abd/Pelvis - IV Contrast Only 08/27 20:43 Order name: IV Saline Lock; Complete Time: 22:45 08/27 20:43 Order name: Labs collected and sent; Complete Time: 22:45 Administered Medications: 08/27 23:22 Drug: morphine IVP or IV 4 mg IVP once over 4 mins Route: IVP; Infused Over: 4 mins; as6 Site: right antecubital; 23:22 Drug: Ondansetron IVP 4 mg IVP once; over 2 minutes Route: IVP; Site: right antecubital;as6 23:22 Drug: NS 0.9% IV 1000 ml IV at 1 bolus Per protocol; 1000 mL bolus Route: IV; Rate: 1 as6 bolus; Site: right antecubital; 08/28 02:47 Drug: Rocephin IV 1 grams IV at calculated rate once; Given slow IV push per pharmacy instructions Route: IV; Rate: calculated rate; Site: right antecubital; 03:01 Follow up: Response: No adverse reaction Disposition: 10:13 Co-signature as Attending Physician, Mohinder Garcia MD I reviewed the patient's care rt provided by the Advanced Practice Provider and agree with the diagnosis and treatment plan. Disposition Summary: 08/28/23 02:09 Discharge Ordered Notes: Location: Home cp Problem: new cp Symptoms: have improved cp Condition: Stable cp Diagnosis - UTI/ Urinary tract infection, site not specified cp - Abdominal pain, unspecified cp Followup: cp - With: Private Physician - When: 2 - 3 days - Reason: Recheck today's complaints Discharge Instructions: - Discharge Summary Sheet cp - Abdominal Pain, Adult cp - Urinary Tract Infection, Adult cp Forms: - Medication Reconciliation Form cp - Thank You Letter cp - Antibiotic Education cp - Prescription Opioid Use cp - Patient Portal Instructions cp - Leadership Thank You Letter cp - Work release form 1 Prescriptions: - Ibuprofen 800 mg Oral Tablet - take 1 tablet ORAL route every 8 hours As needed take with food; 30 tablet; cp Refills: 0, Product Selection Permitted - Macrobid 100 mg Oral Capsule - take 1 capsule ORAL route every 12 hours for 7 days; 14 capsule; Refills: 0, cp Product Selection Permitted Signatures: Dispatcher [employer] Carloz Amaya PA PA cp Slawson, Ashby, RN RN as6 Thi Asher RN RN ha1 Marina Ivan PA-C PAHanna Lee RN RN [id number] Mohinder Garcia MD MD rt
--- NOTE | 2023-08-28 02:10 | ER ---
Nurse's Notes [facility] Name: Tanya Leija Age: 37 yrs Sex: Female : 1985 Arrival Date: 08/27/2023 Time: 19:42 Bed 8 Private MD: Diagnosis: UTI/ Urinary tract infection, site not specified;Abdominal pain, unspecified Presentation: 08/27 20:12 Chief complaint: Patient states: ABDOMINAL BLOATING SINCE 1500, DENIES N/V/D. mb9 Coronavirus screen: At this time, the client does not indicate any symptoms associated with coronavirus-19. Ebola Screen: No symptoms or risks identified at this time. Initial Sepsis Screen: Does the patient meet any 2 criteria? No. Patient's initial sepsis screen is negative. Does the patient have a suspected source of infection? No. Patient's initial sepsis screen is negative. Risk Assessment: Do you want to hurt yourself or someone else? Patient reports no desire to harm self or others. Onset of symptoms was August 27, 2023 at 15:00. 20:12 Method Of Arrival: Ambulatory mb9 20:12 Acuity: SUJEY 3 mb9 Triage Assessment: 20:13 General: Appears uncomfortable, obese. Pain: Complains of pain in abdomen. GI: Abdomen mb9 is obese. Historical: - Allergies: 20:13 No Known Allergies; mb9 - Home Meds: 20:13 lisinopril 10 mg Oral tab 1 tab once daily [Active]; control [Active]; mb9 - PMHx: 20:13 Hypertension; mb9 - Immunization history:: Adult Immunizations up to date. - Social history:: Smoking status: Patient denies any tobacco usage or history of. Screenin:47 [facility] ED Fall Risk Assessment (Adult) Score/Fall Risk Level 0 - 2 = Low Risk. Abuse as6 screen: Denies threats or abuse. Denies injuries from another. Nutritional screening: No deficits noted. Tuberculosis screening: No symptoms or risk factors identified. Assessment: 22:45 General: Appears uncomfortable, obese, Behavior is calm, cooperative. Pain: Complains as6 of pain in right upper quadrant and left upper quadrant. Neuro: Level of Consciousness is awake, alert, obeys commands, Oriented to person, place, time, situation. Cardiovascular: Capillary refill < 3 seconds Patient's skin is warm and dry. Respiratory: Respiratory effort is even, unlabored, Respiratory pattern is regular, symmetrical. GI: Reports upper abdominal pain, Patient currently denies constipation, diarrhea, nausea, vomiting. : No deficits noted. No signs and/or symptoms were reported regarding the genitourinary system. EENT: No deficits noted. No signs and/or symptoms were reported regarding the EENT system. Derm: Skin is intact, is healthy with good turgor. Musculoskeletal: Circulation, motion, and sensation intact. 23:50 Reassessment: Patient and/or family updated on plan of care and expected duration. Pain ha1 level reassessed. Patient is alert, oriented x 3, equal unlabored respirations, skin warm/dry/pink. 08/28 03:00 Reassessment: Patient and/or family updated on plan of care and expected duration. Pain ha1 level reassessed. Patient is alert, oriented x 3, equal unlabored respirations, skin warm/dry/pink. Patient states feeling better. Patient states symptoms have improved. Vital Signs: 08/27 20:12 BP 170 / 98; Pulse 100; Resp 16; Temp 97.8; Pulse Ox 98% ; Weight 132.45 kg; Height 5 mb9 ft. 6 in. ; 22:45 BP 111 / 82; Pulse 82; Resp 16 S; Pulse Ox 98% on R/A; as6 23:30 BP 116 / 76; Pulse 80; Resp 18 S; Pulse Ox 99% on R/A; ha1 08/28 01:30 BP 124 / 77; Pulse 67; Resp 18 S; Pulse Ox 98% on R/A; as6 03:00 BP 130 / 75; Pulse 65; Resp 18 S; Pulse Ox 99% on R/A; ha1 08/27 20:12 Body Mass Index 47.13 (132.45 kg, 167.64 cm) mb9 ED Course: 08/27 19:49 Patient arrived in ED. [email or web address] 20:13 Carloz Esquivel PA is PHCP. cp 20:13 Mohinder Garcia MD is Attending Physician. cp 20:13 Triage completed. mb9 20:14 Arm band placed on. mb9 22:29 Daquan Hunter, ROLANDA is Primary Nurse. as6 22:46 Inserted saline lock: 20 gauge in right antecubital area, using aseptic technique. as6 Blood collected. 22:47 Bed in low position. Call light in reach. Side rails up X 1. as6 23:07 Radiology exam delayed due to lab results not completed at this time. (BUN/Creatinine) eh4 test not completed at this time. IV insertion attempt and/or patient not having appropriate IV at this time. 08/28 00:30 CT Abd/Pelvis - IV Contrast Only In Process Unspecified. EDMS 03:01 No provider procedures requiring assistance completed. IV discontinued, intact, ha1 bleeding controlled, No redness/swelling at site. Pressure dressing applied. 03:02 Provided Education on: ,medication administration . ha1 Administered Medications: 08/27 23:22 Drug: morphine IVP or IV 4 mg IVP once over 4 mins Route: IVP; Infused Over: 4 mins; as6 Site: right antecubital; 23:22 Drug: Ondansetron IVP 4 mg IVP once; over 2 minutes Route: IVP; Site: right antecubital;as6 23:22 Drug: NS 0.9% IV 1000 ml IV at 1 bolus Per protocol; 1000 mL bolus Route: IV; Rate: 1 as6 bolus; Site: right antecubital; 08/28 02:47 Drug: Rocephin IV 1 grams IV at calculated rate once; Given slow IV push per pharmacy ha1 instructions Route: IV; Rate: calculated rate; Site: right antecubital; 03:01 Follow up: Response: No adverse reaction ha1 Medication: 08/27 22:47 VIS not applicable for this client. as6 Outcome: 08/28 02:09 Discharge ordered by . raghu 03:01 Discharged to home ambulatory, ha1 03:01 Condition: stable 03:01 Discharge instructions given to patient, Instructed on discharge instructions, follow up and referral plans. medication usage, Demonstrated understanding of instructions, follow-up care, medications, Prescriptions given X 2, 03:02 Patient left the ED. ha1 Signatures: Dispatcher [employer] EDWI Carloz Esquivel PA PA cp Jeffries, Jennifer [id number] Daquan Hunter RN RN as6 Thi Asher RN RN ha1 Jaki Rose 4 Hanna Cabrera RN RN mb9
[2023-08-28] MEDS ORDERED: CEFTRIAXONE 1000 MG/VIAL ONE (03:04)
[2023-08-28 03:28] VITALS: TEMP 97.8
[2023-08-28 03:35] VITALS: BP 130/75; O2SAT 99
--- NOTE | 2023-08-28 20:59 | RAD REPORT ---
EXAM DESCRIPTION: CT - Abdomen Pelvis W Contrast - 08/28/2023 2:09 am CLINICAL HISTORY: Abdominal distention and pain TECHNIQUE: Axial computed tomography images of the abdomen and pelvis with intravenous contrast. S agittal and coronal reformatted images were created and reviewed. This CT exam was performed using one or more of the following dose reduction techniques: automated exposure control, adjustment of t he mA and/or kV according to patient size, and/or use of iterative reconstruction technique. COMPARISON: No relevant prior studies available. FINDINGS: Lung bases: Unremarkable. No mass. No consolidation. ABDOMEN: Liver: The liver is enlarged and mildly diffusely low in density compatible with steatosis. Gallbladder and bile ducts: Prior cholecystectomy. No ductal dilation. Pancreas: Unremarkable. No mass. No ductal dilation. Spleen: Unremarkable. No splenomegaly. Adrenals: Unremarkable. No mass. Kidneys and ureters: 3.6 cm left renal cyst. No follow-up imaging is recommended. JACR 2018 Nov ; [id number], Management of the Incidental Renal Mass on CT, [employer] 2020; [id number], Bosniak Classi fication of Cystic Renal Masses, Version 2019. No calculi. No hydronephrosis. Stomach and bowel: Unremarkable. No obstruction. No mucosal thickening. PELVIS: Appendix: Normal caliber appendix. No findings to suggest acute appendicitis. Bladder: Unremarkable. No mass. Reproductive: Unremarkable as visualized. ABDOMEN and PELVIS: Intraperitoneal space: Unremarkable. No free air. No significant fluid collection. Bones/joints: Multilevel spondylosis. No acute fracture. No dislocation. Soft tissues: Tiny fat-containing umbilical hernia. Vasculature: Unremarkable. No abdominal aortic aneurysm. Lymph nodes: Unremarkable. No enlarged lymph nodes. IMPRESSION: 1. No acute process identified within the abdomen and pelvis. 2. Other findings as above. Electronically signed by: Ajay Atkinson MD 08/28/2023 12:47 AM ASTROPHYSICS TEACHER Due to temporary technical issues with the PACS/Fluency reporting system, reports are being signed by the in house radiologists without review as a courtesy to insure prompt reporting. The interpreting radiologist is fully responsible for the content of the report.
== END 2023-08-28 03:02 | disposition home or self-care (01) ==
LOC: ER 19:42
DX: N39.0 Urinary tract infection, site not specified (principal)
CPT/HCPCS: 36415; 74177; 80053; 81001; 81025; 83690; 85025; 96374; 96375; 99284; J0696; J2405; Q9967

== ENCOUNTER 2023-09-06 12:47 | Emergency (ER) | payer SELFPAY ==
--- OUTSIDE RECORDS SUMMARY | 2023-09-06 12:50 | XMS REPORT | Continuity of Care Document ---
:1985 Author Organization [facility] t Address [address] [facility] [address] [place] [address] Care Team Providers Name Role Phone EVITADONNIE RICKIE Primary Care Physician Unavailable MALORIE CRUZ Attending Clinician Unavailable SATINDER BRAGG Attending Clinician Unavailable DIANNE AMADOR Attending Clinician Unavailable ELISE FONTENOT Attending Clinician Unavailable LAMIN MEADOWS Attending Clinician Unavailable Ranulfo Attending Clinician Unavailable Christine Attending Clinician Unavailable Doctor Unassigned, [place] Attending Clinician Unavailable Dianne Amador PA-C Attending Clinician Donnie Jama MD Attending Clinician JONATHAN HUGGINS Attending Clinician Unavailable Lacey Garza PT Attending Clinician Unavailable Jonathan Huggins MD Attending Clinician DONNIE JAMA Attending Clinician Unavailable Ajith RUBY Carmineantoni Flannery Attending Clinician 2, [facility] Attending Clinician Unavailable Pob, [facility] Main Attending Clinician Unavailable Elio Capellan Attending Clinician CARSON FULTON Attending Clinician Unavailable Nitesh Pickens Attending Clinician [phone] NITESH DALE Attending Clinician Unavailable Christin Kidd Attending Clinician Denny_eRed Admitting Clinician Unavailable Christine Admitting Clinician Unavailable Payers Payer Name Policy Type Policy Number Effective Date Expiration Date Antoni paul [facility] [id number] 2020 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 00 al Health Outreac h Program Essential [...] rs 2-17 ity of section section 00:00: [place] [address] Medical Branch Obesity, Obesity, Disease Active 2017-10 Unive rs Class III, Class III, 2-31 it y of BMI BMI 00:00: [place] 40-49.9 40-49.9 00 Medical (morbid (morbid Branch obesity) obesity) Family Family Disease Active 2017-10 Univers history of history of 11-09 it y of cleft cleft 00:00: [place] palate palate 00 Medical Branch Influenza Influenza Disease Active 2017-10 Uni vers vaccinatio vaccinatio 11-09 it y of [place] declined [place] Hirsutism Hirsutism Disease Active 2014-10 Uni vers 0-15 ity of 00:00: [place] [address] Medical Branch Allergies, Adverse Reactions, Alerts Allergy Allergy Status Severity Reaction(s) Onset Inactive Treating Comm ents Source Name Type Date Date Clinician NO KNOWN Drug Active Univers ALLERGIE Class ity of S [facility] Social History Social Habit Start Date Stop Date Quantity Comments Source Exposure to Not sure [facility] SARS-CoV-2 [facility] (event) Branch Alcohol intake 2021-08-27 2021-08-27 0 /d University of 00:00:00 00:00:00 [facility] Tobacco use and 2015-07-19 2015-07-19 Smokeless tobacco Un iversity of exposure 00:00:00 00:00:00 non-user [facility] Sex Ass[birth year] At [birth year] Universit y of 00:00:00 00:00:00 [facility] Smoking Status Start Date Stop Date Source Never Smoker [facility] Medications Ordered Filled Start Stop Current Ordering Indication Dosage Frequency Signature Comments Components Source Medication Medication Date Date Medication? Clinician (SIG) Name Name robinsonimat 2020-10 Yes [id number] 1{tbl} Take 1 Univers e-ethinyl 1-15 tablet by ity o f estradioL 00:00: mouth [place] 0.25-35 00 daily. Medical mg-mcg per Branch tablet norgestimat 2020-10 Yes [id number] 1{tbl} Take 1 Univers e-ethinyl 1-15 tablet by ity o f estradioL 00:00: mouth [place] 0.25-35 00 daily. Medical mg-mcg per Branch tablet norgestimat 2020- No [id number] 1{tbl} Take 1 Univers e-ethinyl 2-02 11-15 [...] Source BP Diastolic 2023-02-21 00:00:00 85 mm[facility]Hg[facility] Height 2023-02-21 00:00:00 66 [in_i] [facility] BMI (Body Mass 2023-02-21 00:00:00 46.1 kg/m2 [facility] Medical Index) Group BP Systolic 2023-02-21 00:00:00 128 mm[Hg] [facility] Body Weight 2023-02-21 00:00:00 285.9 [lb_av] [facility] Height 2023-02-06 00:00:00 67 [in_i] [facility] BP Diastolic 2023-02-04 00:00:00 93 mm[Hg] [facility] Height 2023-02-04 00:00:00 66 [in_i] [facility] BMI (Body Mass 2023-02-04 00:00:00 46.9 kg/m2 [facility] Index) Group BP Systolic 2023-02-04 00:00:00 145 mm[Hg] [facility] Body Weight 2023-02-04 00:00:00 290.5 [lb_av] [facility] BP Diastolic 2023-01-27 00:00:00 95 mm[Hg] [facility] Height 2023-01-27 00:00:00 67 [in_i] [facility] BMI (Body Mass 2023-01-27 00:00:00 45.3 kg/m2 [facility] Index) [facility] BP Systolic 2023-01-27 00:00:00 152 mm[Hg] [facility] Body Weight 2023-01-27 00:00:00 4629 [oz_av] [facility] BP Diastolic 2023-01-09 00:00:00 96 mm[Hg] [facility] Height 2023-01-09 00:00:00 66 [in_i] [facility] BMI (Body Mass 2023-01-09 00:00:00 46.6 kg/m2 [facility] Index) Group BP Systolic 2023-01-09 00:00:00 150 mm[Hg] [facility] Body Weight 2023-01-09 00:00:00 288.6 [lb_av] [facility] Height 2022-11-25 00:00:00 67 [in_i] [facility] BMI (Body Mass 2022-11-25 00:00:00 44.2 kg/m2 [facility] Index) [facility] BP Systolic 2022-11-25 00:00:00 161 mm[Hg] [facility] Body Weight 2022-11-25 00:00:00 4515 [oz_av] [facility] BP Systolic 2022-08-06 00:00:00 148 mm[Hg] [facility] Body Weight 2022-08-06 00:00:00 281 [lb_av] [facility] BP Diastolic 2022-08-06 00:00:00 100 mm[Hg] [facility] Height 2022-08-06 00:00:00 67 [in_i] [facility] BMI (Body Mass 2022-08-06 00:00:00 44 kg/m2 [facility] Index) [facility] BP Diastolic 2022-02-19 00:00:00 85 mm[Hg] [facility] Height 2022-02-19 00:00:00 67 [in_i] [facility] BMI (Body Mass 2022-02-19 00:00:00 43.9 kg/m2 [facility] Index) [facility] BP Systolic 2022-02-19 00:00:00 142 mm[Hg] [facility] Body Weight 2022-02-19 00:00:00 4480 [oz_av] [facility] BP Diastolic 2022-02-06 00:00:00 93 mm[Hg] [facility] Height 2022-02-06 00:00:00 67 [in_i] [facility] BMI (Body Mass 2022-02-06 00:00:00 43.4 kg/m2 [facility] Index) [facility] BP Systolic 2022-02-06 00:00:00 145 mm[Hg] [facility] Body Weight 2022-02-06 00:00:00 4432 [oz_av] [facility] Systolic blood 2021-08-27 20:20:00 152 mm[Hg] Univer sity [facility] Diastolic blood 2021-08-27 20:20:00 107 mm[facility]Hg] [facility] 2021-08-27 20:19:00 77 /min [facility] Body temperature 2021-08-27 20:19:00 37.11 [facility] Respiratory rate 2021-08-27 20:19:00 18 /min [facility] Body height 2021-08-27 20:19:00 167.6 cm [facility] Body weight 2021-08-27 20:19:00 127.007 kg [facility] BMI 2021-08-27 20:19:00 45.19 kg/m2 [facility] Procedures Procedure Date / Time Performing Clinician Source Performed REFERRAL- REQUEST/RESPONSE 2023-01-30 05:01:00 Doctor Unassigned , [facility] [place] [facility] US, kidney 2023-01-30 00:00:00 [facility] home sleep study 2023-01-30 00:00:00 [facility] unlisted imaging order 2023-01-09 00:00:00 [facility] US, transvaginal 2022-11-25 00:00:00 [facility] US, transvaginal 2022-08-06 00:00:00 [facility] Caesarean Section [facility] Section [facility] Plan of Care Planned Activity Planned Date Details Comments Source Future Scheduled Test 2023-04-28 lipid panel, serum [facility] 00:00:00 [code = lipid Health Outreac h panel, serum] Program Future Scheduled Test 2023-04-28 vitamin D, [facility] 00:00:00 25-hydroxy, total, Health Ou treach serum [code = Program vitamin D, 25-hydroxy, total, serum] Future Scheduled Test 2023-04-28 CMP, serum or [facility] 00:00:00 plasma [code = Health Outrea ch CMP, serum or Program plasma] Future Scheduled Test 2023-04-28 insulin, serum Armenta brii [facility] 00:00:00 [code = insulin, Health Outr each serum] Program Future Scheduled Test 2023-04-28 HbA1c (hemoglobin [place] [facility] 00:00:00 A1c), blood [code Health Out reach = HbA1c Program (hemoglobin A1c), blood] Future Scheduled Test 2023-04-28 thyroid panel, Armenta brii [facility] 00:00:00 serum [code = Health Outreac h thyroid panel, Program serum] Future Scheduled Test 2023-04-28 T4, free, serum [facility] 00:00:00 [code = T4, free, Health Out reach serum] Program Diagnostic Test 2023-02-21 cytology, fna, [facility] Pending 00:00:00 thyroid [code = Group cytology, fna, thyroid] Encounters Start End Encounter Admission Attending Care Care Encounter Source Date/Time Date/Time Type Type Clinicians Facility Department ID 2022-08-13 Inpatient KAYCEE CRUZ, [facility] [id number] [place] 15:00:00 MALOREI -[id number] [facility] 2021-08-11 Emergency [facility] [id number] Univers 14:55:00 ity [facility] 2021-08-11 Emergency [facility] [id number] [facility] 2023-04-19 Emergency ER MAHSA, [facility] [id number] [place] 16:32:00 18:07:00 SATINDER [id number] [facility] 2023-03-26 2023-03-26 Outpatient Sherice AMADOR, [facility] [id number] [facility] 09:00:00 09:00:00 DIANNE sen [facility] 2023-02-27 2023-02-27 Outpatient KAYCEE FONTENOT, [facility] [id number] [place] 08:02:00 08:02:00 ELISE -[id number] [facility] 2023-02-21 2023-02-21 Outpatient LAMIN HENRIQUEZ [facility] D000 [id number] [place] 11:22:00 11:22:00 -[id number] [facility] 2023-02-21 2023-02-21 Lamin Meadows MM [place] - [id number] [place] 00:00:00 00:00:00 : Dane Jiménez [facility] [address], [facility], Otolaryngol [facility] [address] , Ph. 2023-02-14 2023-02-14 Emergency ER BRAGG, [facility] [id number] [place] 07:09:00 09:48:00 SATINDER -[id number] [facility] 2023-02-14 2023-02-14 emergency [id number] 07:09:00 09:48:00 [id number] 2023-02-13 2023-02-13 Outpatient Yan_W MMG MMG [id number] [place] 00:00:00 00:00:00 0504 [facility] 2023-02-13 2023-02-13 Outpatient Yan_W MMG MMG [id number] [place] 00:00:00 00:00:00 0511 Medical [facility] 2023-02-13 2023-02-13 Outpatient Yan_W MMG MMG [id number] [place] 00:00:00 00:00:00 0512 [facility] 2023-02-13 2023-02-13 Outpatient Yan_W MMG MMG [id number] [place] 00:00:00 00:00:00 0525 [facility] 2023-02-06 2023-02-06 Outpatient Christine DORSEY VAHOP [id number] [place] 00:00:00 00:00:00 [id number] [facility] 2023-02-06 2023-02-06 Outpatient Christine DORSEY MEHOP [id number] [place] 00:00:00 00:00:00 [id number] [facility] 2023-02-06 2023-02-06 Outpatient Christine DORSEY VAHOP 119 [id number] [place] 00:00:00 00:00:00 [id number] [facility] 2023-02-06 2023-02-06 Eliseenoc Hornn [facility] [place] - [id number] [place] 00:00:00 00:00:00 Hugo Fontenot MD: [id number] 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 2023-02-04 2023-02-04 Lamin Meadows Elaina [place] - [id number] [place] 00:00:00 00:00:00 MD: 600 [facility] [address], [facility], Otolaryngol [facility] [id number] , Ph. 2023-01-30 2023-01-30 Orders Doctor ARVIZU [id number] Univers 00:00:00 00:00:00 Only Unassigned, TEVIN [id number] ity of [place] [facility] [id number] Vikas as [id number] [facility] 009 Branch 2023-01-27 2023-01-27 Outpatient LAMIN HENRIQUEZ [facility] [id number] [place] 09:50:00 09:50:00 -[id number] [facility] 2023-01-27 2023-01-27 Outpatient Christine VAIVORY VAHOP [id number] [place] 00:00:00 00:00:00 [id number] [facility] 2023-01-27 2023-01-27 Outpatient Christine [facility] 119 [id number] [place] 00:00:00 00:00:00 [id number] [facility] 2023-01-27 2023-01-27 Outpatient Christine DORSEY [facility] [id number] [place] 00:00:00 00:00:00 [id number] [facility] 2023-01-27 2023-01-27 Outpatient Latesha_All [facility] 119 [id number] [place] 00:00:00 00:00:00 [id number] [facility] 2023-01-27 2023-01-27 All [facility] [place] - [id number] M atagor 00:00:00 00:00:00 Latesha: [address], [facility] [address] [facility] , Ph. h (979) Program 2023-01-14 2023-01-14 Outpatient Yan_W MMG MMG [id number] [place] 00:00:00 00:00:00 0420 [facility] 2023-01-14 2023-01-14 Outpatient Yan_W MMG MMG [id number] [place] 00:00:00 00:00:00 0425 [facility] 2023-01-14 2023-01-14 Outpatient Yan_W MMG MMG [id number] [place] 00:00:00 00:00:00 0503 Medical Group 2023-01-09 2023-01-09 Outpatient KAYCEE MEADOWS LAMIN [facility] D000 [id number] [place] 14:19:00 14:19:00 -[id number] [facility] 2023-01-09 2023-01-09 Outpatient Yan_W MMG MMG [id number] [place] 00:00:00 00:00:00 0404 Medical Group 2023-01-09 2023-01-09 Outpatient Yan_W MMG MMG [id number] [place] 00:00:00 00:00:00 0330 Medical Group 2023-01-09 2023-01-09 CASH Lopez [place] - [id number] [place] 00:00:00 00:00:00 MD: Dane Jiménez [facility] [address], [facility], Otolaryngol [facility] [address] , Ph. 2023-01-08 2023-01-08 Outpatient Yan_W MMG [facility] [id number] [place] 00:00:00 00:00:00 0329 Medical Group 2022-12-13 2022-12-13 Outpatient Latesha_All DORSEY MEHOP [id number] [place] 00:00:00 00:00:00 [id number] [facility] 2022-12-06 2022-12-06 [facility] [id number] [place] 00:00:00 00:00:00 0224 Medical Group 2022-12-04 2022-12-04 [place] [id number] [place] 00:00:00 00:00:00 0222 Medical Group 2022-11-25 2022-11-25 Outpatient Latesha_All MEHOP MEHOP [id number] [place] 00:00:00 00:00:00 [id number] [facility] 2022-11-25 2022-11-25 Outpatient Latesah_All ROBLEROHOP MEHOP 119 [id number] [place] 00:00:00 00:00:00 [id number] [facility] 2022-11-25 2022-11-25 Outpatient Latesha_All ROBLEROHOP MEHOP 119 [id number] [place] 00:00:00 00:00:00 [id number] [facility] 2022-11-25 2022-11-25 All VAIVORY [place] - [id number] M atagor 00:00:00 00:00:00 Latesha: [address], [facility] [address] Outre ac , Ph. 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 2022-04-03 2022-04-03 Outpatient Latesha_All DORSEY [facility] [id number] [place] 06:22:00 06:22:00 [id number] [facility] 2022-04-03 2022-04-03 Outpatient Latesha_All DORSEY [facility] 119 [id number] [place] 00:00:00 00:00:00 [id number] [facility] 2022-02-19 2022-02-19 Outpatient Latesha_All DORSEY [facility] 119 [id number] [place] 04:27:00 04:27:00 [id number] [facility] 2022-02-19 2022-02-19 All [place] - [id number] atagor 00:00:00 00:00:00 Latesha: 1700 Hugo Norton Rastafarian Episco p [place], [facility] [address] Jonathan ac , Ph. h (979) Program 2022-02-18 2022-02-18 Outpatient Latesha_All DORSEY VAHOP 119 [id number] [place] 03:43:00 03:43:00 [id number] [facility] 2022-02-07 2022-02-07 Outpatient Latesha_All DORSEY VAHOP 119 [id number] [place] 09:23:00 09:23:00 [id number] [facility] 2022-02-06 2022-02-06 Outpatient Latesha_All DORSEY [facility] 119 [id number] [place] 06:33:00 06:33:00 [facility] Program 2022-02-06 2022-02-06 All DOR[place] - [id number] M atagor 00:00:00 00:00:00 Latesha: [address] Rastaf[address], [facility] [address] [facility] , Ph. h (979) Program 2022-02-05 2022-02-05 Emergency ER BRAGG, [facility] [id number] [place] 05:04:00 06:39:00 SATINDER [id number] [facility] 2021-08-27 2021-08-27 [facility] [id number] Univers 14:00:00 14:57:05 DIANNE sen [facility] 2021-08-27 2021-08-27 [facility] [id number] Univers 13:43:44 14:57:05 Visit Dianne YOUNGBLOOD 350.1.13.10 i ty of [place] [id number] [place] PROF[place] [id number] [address] 2021-08-27 2021-08-27 Outpatient Sherice AMADOR [facility] [id number] Univers 14:00:00 14:00:00 DIANNE sen [facility] 2021-08-27 2021-08-27 Letter Marjorie [facility] [id number] Univers 00:00:00 00:00:00 (Out) Dianne YOUNGBLOOD 350.1.13.10 i ty [facility] [id number] [id number] [address] 2021-08-20 2021-08-20 Outpatient [facility] [id number] Univers 13:00:00 13:00:00 DIANNE sen [facility] 2021-08-09 2021-08-09 Telephone Donnie Jama [facility] [id number] Univers 00:00:00 00:00:00 Cam RYLIE 350.1.13.10 i ty [facility] [id number] [id number] [place] dical NAL [address] [facility] 2021-07-03 2021-07-03 Outpatient R [facility] [id number] Univers 10:00:00 10:00:00 ity of [facility] 2021-07-03 2021-07-03 Patient Doctor [facility] [id number] Univers 00:00:00 00:00:00 Secure Msg Unassigned, Rylie 350.1.13.10 ity [id number] [id number] [address] 2021-05-17 2021-05-17 Outpatient [facility] [id number] Univers 14:00:00 14:00:00 JONATHAN itkip [facility] 2021-05-17 2021-05-17 Telephone [facility] [id number] Univers 00:00:00 00:00:00 Lacey Youngblood 350.1.13.10 i ty [id number] [id number] [place] dicwy nal [address] [facility] 2021-05-10 2021-05-10 Ancillary Lacey Garza [facility] 1.2.840. [id number] Univers 14:38:31 15:49:18 Visit Jonathan Huggins 350.1.13.10 ity [id number] [id number] [place] dical nal [address] [facility] 2021-04-30 2021-04-30 Ancillary Lacey Garza [facility] 1.2.840. 114 [id number] Univers 15:44:00 16:53:51 Visit Jonathan Huggins 350.1.13.10 ity [place] [id number] [id number] [place] dical nal [address] [facility] 2021-04-30 2021-04-30 Outpatient R JOSELUIS [facility] [id number] Univers 15:40:00 15:40:00 JONATHAN [facility] 2021-04-18 2021-04-18 Office [facility] [id number] Univers 13:43:30 15:02:39 Visit Dianne Youngblood 350.1.13.10 i ty [id number] [id number] [place] dical nal [address] [facility] 2021-04-18 2021-04-18 Outpatient [facility] [id number] Univers 14:00:00 14:00:00 DIANNE kip [facility] 2021-04-17 2021-04-17 Outpatient R DONNIE JAMA [facility] [id number] Univers 10:00:00 10:00:00 [facility] 2021-04-16 2021-04-16 Donnie Meza [facility] 1.2.840.114 [id number] Univers 00:00:00 00:00:00 Rickie Youngblood 350.1.13.10 i ty [id number] [id number] [facility] 134 [facility] 2021-04-03 2021-04-03 [facility] 1.2.840.114 [id number] Univers 17:32:27 23:59:00 Encounter Dianne Youngblood 350.1.13.10 ity [facility] [id number] [place] [id number] [facility] 806 Chloe 2021-04-03 2021-04-03 Outpatient [facility] [id number] Univers 00:00:00 00:00:00 DIANNE sen [facility] 2021-04-02 2021-04-02 Case [facility] [id number] Univers 00:00:00 00:00:00 Management Dianne Youngblood 350.1.13.10 [id number] [id number] [address] 2021-04-02 2021-04-02 Telephone Marjorie [facility] [id number] Univers 00:00:00 00:00:00 Dianne Rylie 350.1.13.10 i ty [id number] [id number] [address] 2021-04-02 2021-04-02 Case [facility] [id number] [id number] Univers 00:00:00 00:00:00 Management Dianne Ayalaton 350.1.13.10 ity [id number] [id number] [address] 2021-03-28 2021-03-28 Outpatient R MARJORIE [facility] [id number] [facility] 16:15:00 16:15:00 DIANNE itkip of [facility] 2021-03-28 2021-03-28 Office Marjorie [facility] [id number] [facility] 12:57:11 14:20:21 Visit Dianne Youngblood 350.1.13.10 i [id number] [id number] [address] 2021-03-28 2021-03-28 Letter Marjorie [facility] [id number] [facility] 00:00:00 00:00:00 (Out) Dianne [place] [id number] [id number] [id number] [address] 2021-01-01 2021-01-01 Patient Ajith [facility] [id number] [facility] 00:00:00 00:00:00 Outreach Carmine [facility] [id number] i [facility] [id number] [id number] [place] 388 Chloe 2020 2020 Outpatient DONNIE VASQUEZ [facility] [id number] [facility] 09:30:00 [facility] 2020-12-05 Outpatient R MARJORIE [facility] [id number] Univers 15:15:00 15:15:00 [facility] 2020-11-21 2020-11-21 Outpatient R MARJORIE [facility] [id number] Univers 09:00:00 09:00:00 [facility] 2020-11-14 2020-11-14 [facility] 1.2.000.651 [id number] Univers 08:22:04 08:59:50 Visit Dianne Youngblood 350.1.13.10 [place] [phone] [place] dical nal [address] [facility] 2020-11-14 2020-11-14 Outpatient Sherice AMADOR [facility] [id number] Univers 08:00:00 08:00:00 [facility] 2020-11-14 2020-11-14 Orders Doctor [facility] 1.2.840.114 [id number] Univers 00:00:00 00:00:00 Only Unassigned, TEVIN 350.1.13.10 ity of [place] [facility] 4.2.7.2.686 Vikas as [phone] [address] 2020-11-13 2020-11-13 Switch Foreman 2, Adc Lab [facility] 1.2.840.114 [id number] Univers 09:30:50 09:45:50 Visit Donnie Jama 350.1.13.10 [place] [phone] [place] dical nal [address] [facility] 2020-11-13 2020-11-13 Outpatient R DONNIE JAMA [facility] [id number] Univers 09:30:00 09:30:00 ity [facility] 2020-11-13 2020-11-13 Case Donnie Jama [facility] 1.2.294.121 [id number] Univers 00:00:00 00:00:00 Management Cam [place] 350.1.13.10 [place] [phone] Nc dical nal [address] [facility] [place] 2020-11-10 2020-11-10 Telephone Donnie Jama [facility] 1.2.840.114 [id number] Univers 00:00:00 00:00:00 Cam [place] 350.1.13.10 [place] [phone] Nc dical nal [address] [facility] [place] 2020-11-07 2020-11-07 Case Donnie Jama NMJORGE L 1.2.934.069 [id number] Univers 00:00:00 00:00:00 Management Cam [place] 350.1.13.10 [place] [phone] Nc dical nal [address] [facility] [place] 2020-11-03 2020-11-03 Telephone Donnie Jama [facility] 1.2.840.114 [id number] Univers 00:00:00 00:00:00 Cam [place] 350.1.13.10 [place] [phone] Nc dical nal [address] [facility] [place] 2020-11-01 2020-11-01 Office Donnie Jama [facility] 1.2.628.647 [id number] [facility] 14:44:40 16:48:19 Visit Rickie [place] 350.1.13.10 [place] [phone] Nc dical nal [address] [facility] [place] 2020-11-01 2020-11-01 Switch Foreman 2, [facility] Lab [facility] 1.2.840.114 [id number] Univers 15:14:51 15:29:51 Visit Dorene Jamasadaf [place] 350.1.13.10 [place] [phone] Nc dickadeem [address] 2020-11-01 2020-11-01 Outpatient R DONNIE JAMA [facility] [id number] Univers 14:45:00 14:45:00 ity of [facility] 2020-10-26 2020-10-26 Routine Evita [facility] 1.2.081.310 [id number] Univers 12:38:04 13:31:34 Cam [place] 350.1.13.10 it[place] [phone] [address] 2020-10-26 2020-10-26 Outpatient R EVITA [facility] [id number] Univers 13:00:00 13:00:00 ity of [facility] 2020-10-25 2020-10-25 Switch Foreman Lana, [facility] Lab Main [facility] 1.2.8 40.114 [id number] Univers 17:25:18 17:40:18 Visit Donnie Jama [place] 350.1.13.10 [place] [phone] [address] 2020-10-25 2020-10-25 Routine Evita [facility] 1.2.704.266 [id number] Univers 13:36:17 17:06:17 Cam [place] 350.1.13.10 ity of [place] [phone] [address] 2020-10-25 2020-10-25 Outpatient R DONNIE JAMA [facility] [id number] Univers 14:00:00 14:00:00 ity of [facility] 2020-10-23 2020-10-23 [facility] 1.2.840.114 [id number] Univers 17:30:00 23:59:00 Encounter Dianne Youngblood 350.1.13.10 [place] [phone] [address] 2020-10-23 2020-10-23 Outpatient R MARJORIE [facility] [id number] Univers 00:00:00 00:00:00 DIANNE ity [facility] 2020-10-20 2020-10-20 Outpatient R DONNIE JAMA [facility] [id number] Univers 09:45:00 09:45:00 ity of [facility] 2020-10-20 2020-10-20 Switch Foreman 2, [facility] Lab [facility] 1.2.840.114 [id number] Univers 09:12:32 09:27:32 Visit Donnie Jama 350.1.13.10 [place] [phone] [facility] [address] [facility] [place] 2020-10-18 2020-10-18 Outpatient R DONNIE JAMA [facility] [id number] Univers 09:15:00 09:15:00 ity of [facility] 2020-10-18 2020-10-18 Switch Foreman 2, Adc Lab [facility] 1.2.840.114 [id number] Univers 08:38:03 08:53:03 Visit Donnie Jama [place] 350.1.13.10 [place] [phone] [facility] [address] [facility] [place] 2020-10-18 2020-10-18 Case Marjorie [facility] 1.2.856.809 [id number] Univers 00:00:00 00:00:00 Management Dianne Youngblood 350.1.13.10 [place] [phone] Nc dicwy nal [address] [facility] [place] 2020-10-16 2020-10-16 Emergency Elio Bose [facility] 1.2.840.114 [id number] Univers 18:03:00 19:27:00 Nasreen Youngblood 350.1.13.10 [place] [phone] [facility] 084 Chloe 2020-10-16 2020-10-16 Switch Foreman 2, Adc Lab [facility] 1.2.840.114 [id number] Univers 09:27:47 09:42:47 Visit Donnie Jamaton 350.1.13.10 [place] [phone] Nc dical [facility] [address] [facility] [place] 2020-10-16 2020-10-16 Outpatient R DONNIE JAMA [facility] [id number] Univers 09:30:00 09:30:00 ity of [facility] 2020-10-16 2020-10-16 [facility] 1.2.207.484 [id number] Univers 00:00:00 00:00:00 Management Dianne Youngblood 350.1.13.10 [place] [phone] Nc dical nal [address] [facility] [place] 2020-10-16 2020-10-16 Orders Doctor [facility] 1.2.840.114 [id number] Univers 00:00:00 00:00:00 Only Unassigned, TEVIN 350.1.13.10 ity of [place] [facility] 4.2.7.2.686 Vikas as [phone] [address] 2020-10-12 2020-10-12 [facility] 1.2.840.114 [id number] Univers 09:32:05 23:59:00 Encounter Dianne Youngblood 350.1.13.10 [place] [phone] [facility] 806 Chloe 2020-10-12 2020-10-12 Out[facility] [id number] Univers 00:00:00 00:00:00 DIANNE itkip of [facility] 2020-10-12 2020-10-12 Orders Doctor [facility] 1.2.840.114 [id number] Univers 00:00:00 00:00:00 Only Unassigned, TEVIN 350.1.13.10 ity of [place] [facility] 4.2.7.2.686 Vikas as [phone] [address] 2020-10-12 2020-10-12 Case [facility] 1.2.226.964 [id number] Univers 00:00:00 00:00:00 Management Dianne Youngblood 350.1.13.10 [place] [phone] Nc dical nal [address] [facility] [place] 2020-10-12 2020-10-12 Telephone Donnie Jama [facility] 1.2.840.114 [id number] Univers 00:00:00 00:00:00 Cam [place] 350.1.13.10 i [place] [phone] Nc dical nal [address] [facility] [place] 2020-10-12 2020-10-12 Donnie Thomas [facility] 1.2.874.693 [id number] Univers 00:00:00 00:00:00 Management Rickie Youngblood 350.1.13.10 [place] [phone] Nc dical nal [address] [place] [address] 2020-10-11 2020-10-11 Outpatient R [facility] [id number] Univers 10:00:00 10:00:00 ity of [facility] 2020-10-11 2020-10-11 Switch Foreman 2, Adc Lab [facility] 1.2.840.114 [id number] Univers 09:43:31 09:58:31 Visit Donnie Jama 350.1.13.10 [place] [phone] Nc dical nal [address] [facility] [place] 2020-10-11 2020-10-11 Tyler Amador [facility] 1.2.241.653 [id number] Univers 00:00:00 00:00:00 Management Dianne [place] 350.1.13.10 [place] [phone] Nc dical nal [address] [facility] [place] 2020-10-09 2020-10-09 Outpatient R [facility] [id number] Univers 10:00:00 10:00:00 ity of [facility] 2020-10-09 2020-10-09 Switch Foreman 2, Adc Lab [facility] 1.2.840.114 [id number] Univers 09:35:28 09:50:28 Visit Donnie Jama Rickie Youngblood 350.1.13.10 [place] [phone] Nc dical nal [address] [facility] [place] 2020-10-09 2020-10-09 Case Marjorie [facility] 1.2.239.655 [id number] Univers 00:00:00 00:00:00 Management Dianne Youngblood 350.1.13.10 [place] [phone] Nc dical nal [address] [facility] [place] 2020-10-04 2020-10-04 Outpatient R MARJORIE [facility] [id number] Univers 15:45:00 15:45:00 DIANNE itkip [facility] 2020-10-04 2020-10-04 [facility] 1.2.940.418 [id number] Univers 10:36:40 11:31:56 Dianne Youngblood 350.1.13.10 ity of [place] [phone] Nc dical nal [address] [facility] [place] 2020-10-03 2020-10-03 Emergency Elio Bose [facility] 1.2.840.114 [id number] Univers 14:14:00 15:41:00 Nasreen Youngblood 350.1.13.10 [place] [phone] [facility] [address] [place] [address] 2020-10-03 2020-10-03 Telephone Donnie Jama [facility] 1.2.840.114 [id number] Univers 00:00:00 00:00:00 Rickie Youngblood 350.1.13.10 i [place] [phone] Nc dical nal [address] [facility] 2020-10-02 2020-10-02 Emergency ER OWPHILLIP HarrisAntoni [facility] [id number] [place] 16:29:00 20:15:00 -[id number] [facility] 2020-10-02 2020-10-02 Telephone Donnie Jama [facility] 1.2.840.114 [id number] Univers 00:00:00 00:00:00 Cam [place] 350.1.13.10 [place] [phone] [address] 2020-10-02 2020-10-02 Telephone Donnie Jama [facility] 1.2.840.114 [id number] Univers 00:00:00 00:00:00 Cam [place] 350.1.13.10 i [place] [phone] [address] 2020-09-28 2020-09-28 Initial Donnie Jama [facility] 1..990.053 [id number] Univers 09:57:43 10:54:15 Rickie Youngblood 350.1.13.10 ity of [place] [phone] [address] 2020-09-28 2020-09-28 Outpatient R DONNIE JAMA [facility] [id number] Univers 10:00:00 10:00:00 ity of [facility] 2020-05-29 2020-05-29 [facility] 1.2.840.114 [id number] Univers 00:00:00 00:00:00 Nitesh Vasquez BRICK VENEER MAKER 350.1.13.10 ity [facility] 4.2.7.2.686 Vikas as MATERNAL [phone] Med ical & CHILD [address] [place] [address] 2020-02-09 2020-02-09 Outpatient R UCHE [facility] [id number] Univers 09:00:00 09:00:00 NITESH armando [facility] 2020-02-07 2020-02-07 Outpatient R UCHE [facility] [id number] Univers 15:30:00 15:30:00 NITESH armando [facility] 2020-02-07 2020-02-07 [facility] 1.2.840.114 [id number] 12:50:41 13:05:41 ne Visit Nitesh C [employer] MAKER 350.1.13.10 REGIONAL 4.2.7.2.686 MATERNAL [phone] & CHILD [address] [place] [address] 2020-02-07 2020-02-07 [facility]ic [facility] 1.2.840.114 [id number] [facility] 12:50:41 13:05:41 ne Visit Nitesh C [employer] [place]ENEER MAKER 350.1.13.10 ity of REGIONAL 4.2.7.2.686 Vikas as MATERNAL [phone] Med ical & CHILD 107 [facility] 2019-11-08 2019-11-08 Office Ardengamaliel [facility] 1.2.610.077 [id number] 10:26:06 11:30:34 Visit Nitesh C [place] MAKER 350.1.13.10 REGIONAL 4.2.7.2.686 MATERNAL [phone] & CHILD [address] [place] [address] 2019-11-08 2019-11-08 Office Uche [facility] 1.2.140.259 [id number] Univers 10:26:06 11:30:34 Visit [facility] C BRICK VENEER MAKER 350.1.13.10 ity of REGIONAL 4.2.7.2.686 Vikas as MATERNAL [phone] Med ical & CHILD [address] [place] [address] 2019-11-08 2019-11-08 Telephone Brandon NMJORGE L 1.2.840.114 [id number] Univers 00:00:00 00:00:00 Christin Yeung [place] MAKER 350.1.13.10 it y of REGIONAL 4.2.7.2.686 Vikas as MATERNAL [phone] Med ical & CHILD 107 [facility] 2019-11-02 2019-11-02 Office Brandon NMJORGE L 1.2.172.857 [id number] Univers 10:32:17 11:17:04 Visit Christin Yeung BRICK VENEER MAKER 350.1.13.10 it y of REGIONAL 4.2.7.2.686 Vikas as MATERNAL [phone] Med ical & CHILD 107 [facility] 2019-11-02 2019-11-02 Orders Doctor ARVIZU 1.2.840.114 [id number] 00:00:00 00:00:00 Only Unassigned, TEVIN 350.1.13.10 ity of [place] [facility] 4.2.7.2.686 Vikas as [phone] [place] [address] Branch Results Test Description Test Time Test Comments Results Result Comments Source fine needle aspirate C# 2023-02-26 13:59:00 Test Item Value Reference Range Interpretation Comme nts fine needle aspirate C# (test code = fine needle aspirate see separ ate report C#) [facility] [id number] 18:06:00 Test Item Value Reference Range Interpretation Comments thyroid stimulating hormone L 1.97 uIU/mL 0.36-3.74 (test code = thyroid stimulating hormone L) [facility] [id number] 16:59:00 Test Item Value Reference Range Interpretation Comments free T3 (test code = free T3) 2.93 pg/mL 2.0-4.4 [facility] [id number] 16:59:00 Test Item Value Reference Range Interpretation Comments free T3 (test code = free T3) 2.93 pg/mL 2.0-4.4 [facility] free [Mass/volume] in Serum or Plasma 2023-01-09 00:00:00 Test Item Value Reference Range Interpretation Comments free T4 (test code = free T4) 1.11 NG/dL 0.93-1.7 [facility] A, [id number] 16:14:00 Test Item Value Reference Range Interpretation Comments Strep (test code = Strep) negative [facility] Out[facility] ProgramUrinalysis macro (dipstick) panel - [id number] 15:44:25 Test Item Value Reference Range Interpretation Comments Leukocytes (test code = Leukocytes) neg Nitrite (test code = Nitrite) neg Urobilinogen (test code = neg Urobilinogen) Protein (test code = Protein) + pH (test code = pH) 6.0 Blood (test code = Blood) neg Specific Newton (test code = Specific 1.030 Newton) Ketone (test code = Ketone) neg Bilirubin (test code = Bilirubin) neg Glucose (test code = Glucose) neg Appearance (test code = Appearance) cloudy Color (test code = Color) yellow [facility] panel, [id number] 00:00:00 Test Item Value Reference Range Interpretation Comments Interpretation and review of laboratory note results (test code = 17403-1) Report (test code = 60399-1) . [facility] 2000 panel - Serum or [id number] 00:00:00 Test Item Value Reference Range Interpretation [...] 8.7-10.2 Serum or Plasma (test code = 93222-7) Protein [Mass/volume] in 7.0 g/dL 6.0-8.5 Serum or Plasma (test code = 2885-2) Albumin [Mass/volume] in 4.4 g/dL 3.8-4.8 Serum or Plasma (test code = 1751-7) Globulin [Mass/volume] in 2.6 g/dL 1.5-4.5 Serum by calculation (test code = 32768-4) Albumin/Globulin [Mass Ratio] 1.7 1.2-2.2 in Serum [...] Serum or Plasma (test code = 1742-6) [facility]ennial[facility]inal[facility] dipstick W Reflex Microscopic panel - [id number] 00:00:00 Test Item Value Reference Range Interpretation [...] negative/trace A Test strip (test code = 53297-6) Glucose [Presence] in Urine by negative negative Test strip (test code = 97844-1) Ketones [Presence] in Urine by negative negative [...] Urine by Test strip (test code = 05943-0) Nitrite [Presence] in Urine by negative negative Test strip (test code = 5802-4) Microscopic observation see below: [Identifier] in Urine sediment by Light microscopy (test code = 54793-7) Leukocytes [#/area] in Urine 0-5 0-5 sediment by Microscopy high power field (test code = 5821-4) Erythrocytes [#/area] in Urine >30 0-2 A sediment by Microscopy high power field (test code = 95251-9) Epithelial cells [#/area] in 0-10 0-10 Urine sediment by Microscopy high power field (test code = 5787-7) Epithelial cells.renal farm appraiser [#/area] in Urine sediment by Microscopy high power field (test code = 18991-2) Casts [Presence] in Urine none seen none seen sediment by Light microscopy (test code = 72830-9) Casts [Type] in Urine sediment farm appraiser by Light microscopy (test code = 72201-7) Unidentified crystals farm appraiser [Presence] in Urine sediment by Light microscopy (test code = 5783-6) Crystals [type] in Urine farm appraiser sediment by Light microscopy (test code = 5782-8) Mucus [Presence] in Urine farm appraiser sediment by Light microscopy (test code = 8247-9) Bacteria [#/area] in Urine few none seen/few sediment by Microscopy high power field (test code = 5769-5) Yeast [#/area] in Urine farm appraiser sediment by Microscopy high power field (test code = 5822-2) Trichomonas vaginalis farm appraiser [Presence] in Urine sediment by Light microscopy (test code = 5813-1) Urine sediment comments by farm appraiser Light microscopy Narrative (test code = 14392-6) [facility] T4 and TSH panel - Serum or [id number] 00:00:00 Test Item Value Reference Range Interpretation Comments Thyrotropin [Units/volume] in 1.580 uIU/mL 0.450-4.500 Serum or Plasma by Detection limit <= 0.005 mIU/L (test code = 04156-9) Thyroxine (T4) free 1.27 NG/dL 0.82-1.77 [Mass/volume] in Serum or Plasma (test code = 3024-7) [facility] ProgramCBC W Auto Differential panel - Blood [...] = 706-2) immature cells (test code = farm appraiser immature cells) Neutrophils [#/volume] in Blood 5.0 [...] Blood by Automated count (test code = 80587-0) Immature granulocytes 0.0 x10e3/uL 0.0-0.1 [#/volume] in Blood by Automated count (test code = 47440-6) Nucleated erythrocytes/100 farm appraiser leukocytes [Ratio] in Blood by Automated count (test code = 61276-8) Morphology [Interpretation] in farm appraiser Blood Narrative (test code = 80277-9) [facility] 1996 panel - Serum or Plasma 2022-02-08 [...] or Plasma by calculation (test code = 48000-7) Cholesterol in LDL [Mass/volume] in 84 mg/dL 0-99 Serum or Plasma by calculation (test code = 10892-0) Laboratory comment [Text] in Report farm appraiser Narrative (test code = 15798-1) [facility]ennialFolate+Cyanocobalamin [Interpretation] in Serum or [id number] 00:00:00 Test Item Value Reference Range Interpretation Comments Cobalamin (Vitamin B12) 377 pg/mL 232-1245 [Mass/volume] in Serum or Plasma (test code = 2132-9) Folate [Mass/volume] in Serum or 6.6 NG/mL >3.0 Plasma (test code = 2284-8) [facility]ennialHemoglobin A1c/Hemoglobin.total in [id number] 00:00:00 Test Item Value Reference Range Interpretation Comments Hemoglobin A1c/Hemoglobin.total in 5.5 % 4.8-5.6 Blood (test code = 4548-4) Glucose mean value [Mass/volume] in 111 mg/dL Blood Estimated from glycated hemoglobin (test code = 12019-2) [facility]25-Hydroxyvitamin D3+25- Hydroxyvitamin D2 [Mass/volume] in Serum or [id number] 00:00:00 Test Item Value Reference Range Interpretation Comments 25-Hydroxyvitamin 14.1 NG/mL 30.0-100.0 L D3+25-Hydroxyvitamin D2 [Mass/volume] in Serum or Plasma (test code = 37984-7) [facility]
--- NOTE | 2023-09-06 13:12 | EDPHYS ---
Physician Documentation [facility] Name: Tanya Leija Age: 37 yrs Sex: Female : 1985 Arrival Date: 09/06/2023 Time: 12:47 Bed 10 Private MD: ED Physician Jack Ocampo HPI: 09/06 13:10 This 37 yrs old Female presents to ER via Ambulatory with complaints of Facial Swelling.sp3 13:10 Patient awoke today with left-sided facial swelling and mild dental pain in the upper sp3 maxilla on the left side. She denies any fever, sore throat, difficulty swallowing, headache, neck pain, chest pain, shortness of breath, URI symptoms, known sick contacts, travel history, or any other signs or symptoms on ROS at this time.. GUARD MUSEUM: 12:54 LMP 08/24/2023, unknown ko1 Historical: - Home Meds: 12:54 lisinopril 10 mg Oral tab 1 tab once daily [Active]; ko1 - PMHx: 12:54 Hypertension; ko1 - Immunization history:: Adult Immunizations unknown. - Social history:: Smoking status: Patient denies any tobacco usage or history of. ROS: 13:10 Constitutional: Negative for fever, chills, and weight loss, Eyes: Negative for injury, sp3 pain, redness, and discharge, Neck: Negative for injury, pain, and swelling, Cardiovascular: Negative for chest pain, palpitations, and edema, Respiratory: Negative for shortness of breath, cough, wheezing, and pleuritic chest pain, Abdomen/GI: Negative for abdominal pain, nausea, vomiting, diarrhea, and constipation, Back: Negative for injury and pain, MS/Extremity: Negative for injury and deformity, Skin: Negative for injury, rash, and discoloration, Neuro: Negative for headache, weakness, numbness, tingling, and seizure, Psych: Negative for depression, anxiety, suicide ideation, homicidal ideation, and hallucinations, Allergy/Immunology: Negative for hives, rash, and allergies, Endocrine: Negative for neck swelling, polydipsia, polyuria, polyphagia, and marked weight changes, Hematologic/Lymphatic: Negative for swollen nodes, abnormal bleeding, and unusual bruising, 13:10 All other systems are negative, Exam: 13:10 Constitutional: This is a well developed, well nourished patient who is awake, alert, sp3 and in no acute distress. Eyes: Pupils equal round and reactive to light, extra-ocular motions intact. Lids and lashes normal. Conjunctiva and sclera are non-icteric and not injected. Cornea within normal limits. Periorbital areas with no swelling, redness, or edema. Neck: Trachea midline, no thyromegaly or masses palpated, and no cervical lymphadenopathy. Supple, full range of motion without nuchal rigidity, or vertebral point tenderness. No Meningismus. Chest/axilla: Normal chest wall appearance and motion. Nontender with no deformity. No lesions are appreciated. Cardiovascular: Regular rate and rhythm with a normal S1 and S2. No gallops, murmurs, or rubs. Normal PMI, no JVD. No pulse deficits. Respiratory: Lungs have equal breath sounds bilaterally, clear to auscultation and percussion. No rales, rhonchi or wheezes noted. No increased work of breathing, no retractions or nasal flaring. Abdomen/GI: Soft, non-tender, with normal bowel sounds. No distension or tympany. No guarding or rebound. No evidence of tenderness throughout. Back: No spinal tenderness. No costovertebral tenderness. Full range of motion. Skin: Warm, dry with normal turgor. Normal color with no rashes, no lesions, and no evidence of cellulitis. MS/ Extremity: Pulses equal, no cyanosis. Neurovascular intact. Full, normal range of motion. Neuro: Awake and alert, GCS 15, oriented to person, place, time, and situation. Cranial nerves II-XII grossly intact. Motor strength 5/5 in all extremities. Sensory grossly intact. Cerebellar exam normal. Normal gait. Psych: Awake, alert, with orientation to person, place and time. Behavior, mood, and affect are within normal limits. 13:10 Head/face: Left cheek swelling noted.. 13:10 ENT: Upper left maxilla molars tender to touch with surrounding inflammatory changes.. Vital Signs: 12:50 BP 168 / 105; Pulse 80; Resp 16; Temp 97.6; Pulse Ox 100% ; Weight 132.45 kg; Height 5 ko1 ft. 6 in. ; 12:50 Body Mass Index 47.13 (132.45 kg, 167.64 cm) ko1 MDM: 13:06 Patient medically screened. sp3 13:11 Data reviewed: vital signs, nurses notes. ED course: 37-year-old female with dental sp3 infection and surrounding soft tissue swelling. Will place on Augmentin and diclofenac and have patient follow-up with dental services starting Friday. No further work-up indicated in the emergency department.. Administered Medications: No medications were administered Disposition Summary: 09/06/23 13:12 Discharge Ordered Notes: Location: Home sp3 Condition: Stable sp3 Diagnosis - Dental infection, cheek swelling sp3 Followup: sp3 - With: Private Physician - When: Upon discharge from the Emergency Department - Reason: Continuance of care Discharge Instructions: - Discharge Summary Sheet sp3 - Dental Abscess sp3 Forms: - Work release form ll1 - Medication Reconciliation Form sp3 - Thank You Letter sp3 - Antibiotic Education sp3 - Prescription Opioid Use sp3 - Patient Portal Instructions sp3 - Leadership Thank You Letter sp3 Prescriptions: - Augmentin 875-125 mg Oral Tablet - take 1 tablet ORAL route every 12 hours for 10 days; 20 tablet; Refills: 0, sp3 Product Selection Permitted - Diclofenac Sodium 75 mg Oral Tablet Sustained Release - take 1 tablet ORAL route 2 times per day; 30 tablet; Refills: 0, Product sp3 Selection Permitted Signatures: Jack Ocampo MD MD sp3 Gela Goddard RN RN ko1 Corrections: (The following items were deleted from the chart) 12:55 12:54 Home Meds: control; ko1 ko1
--- NOTE | 2023-09-06 13:12 | ER ---
Nurse's Notes [facility] Name: Tanya Leija Age: 37 yrs Sex: Female : 1985 Arrival Date: 09/06/2023 Time: 12:47 Bed 10 Private MD: Diagnosis: Dental infection, cheek swelling Presentation: 09/06 12:50 Chief complaint: Patient states: left cheek started hurting yesterday and this morning ko1 it was swollen, no tooth pain just more in the cheek. Coronavirus screen: At this time, the client does not indicate any symptoms associated with coronavirus-19. Ebola Screen: No symptoms or risks identified at this time. Initial Sepsis Screen: Does the patient meet any 2 criteria? No. Patient's initial sepsis screen is negative. Does the patient have a suspected source of infection? No. Patient's initial sepsis screen is negative. Risk Assessment: Do you want to hurt yourself or someone else? Patient reports no desire to harm self or others. Onset of symptoms was September 05, 2023. 12:50 Method Of Arrival: Ambulatory ko1 12:50 Acuity: SUJEY 4 ko1 Triage Assessment: 12:54 General: Appears uncomfortable, Behavior is calm, cooperative, appropriate for age. ko1 Pain: Complains of pain in left cheek. COMBINER: 12:54 LMP 08/24/2023, unknown ko1 Historical: - Home Meds: 12:54 lisinopril 10 mg Oral tab 1 tab once daily [Active]; ko1 - PMHx: 12:54 Hypertension; ko1 - Immunization history:: Adult Immunizations unknown. - Social history:: Smoking status: Patient denies any tobacco usage or history of. Screenin:20 [facility] ED Fall Risk Assessment (Adult) Score/Fall Risk Level 0 - 2 = Low Risk ll1 Oriented to surroundings, Maintained a safe environment, Educated pt \T\ family on fall prevention, incl call for assistance when getting out of bed, Hourly rounding (assess needs \T\ fall precautionary measures) done. Abuse screen: Denies threats or abuse. Nutritional screening: No deficits noted. Tuberculosis screening: No symptoms or risk factors identified. Assessment: 13:20 Reassessment: No changes from previously documented assessment. Patient and/or family ll1 updated on plan of care and expected duration. Pain level reassessed. Patient is alert, oriented x 3, equal unlabored respirations, skin warm/dry/pink. Vital Signs: 12:50 BP 168 / 105; Pulse 80; Resp 16; Temp 97.6; Pulse Ox 100% ; Weight 132.45 kg; Height 5 ko1 ft. 6 in. ; 12:50 Body Mass Index 47.13 (132.45 kg, 167.64 cm) ko1 ED Course: 12:49 Patient arrived in ED. as 12:54 Triage completed. ko1 12:54 Arm band placed on left wrist. Patient placed in an exam room, on a stretcher, on pulse ko1 oximetry, Patient notified of wait time. 12:56 Gela Goddard, RN is Primary Nurse. ko1 13:00 Jack Ocampo MD is Attending Physician. sp3 13:20 Patient has correct armband on for positive identification. Bed in low position. Call ll1 light in reach. Provided Education on: n/a. 13:20 No provider procedures requiring assistance completed. Patient did not have IV access ll1 during this emergency room visit. Administered Medications: No medications were administered Medication: 13:20 VIS not applicable for this client. ll1 Outcome: 13:12 Discharge ordered by . sp3 13:20 Discharged to home ambulatory, 1 13:20 Condition: stable 13:20 Discharge instructions given to patient, Instructed on discharge instructions, follow up and referral plans. medication usage, Demonstrated understanding of instructions, follow-up care, medications, Prescriptions given X 2, 13:20 Patient left the ED. ll1 Signatures: Cristiane Alford Lynsay, RN RN ll1 Jack Ocampo MD MD sp3 Gela Goddard, RN RN ko1 Corrections: (The following items were deleted from the chart) 12:55 12:54 Home Meds: control; ko1 ko1
[2023-09-06 14:29] VITALS: BP 168/105; TEMP 97.6; O2SAT 100
== END 2023-09-06 13:20 | disposition home or self-care (01) ==
LOC: ER 12:47
DX: K04.7 Periapical abscess without sinus (principal)
CPT/HCPCS: 99283